=== PATIENT | male | born 1985 | race American Indian/Alaskan Native ===

== ENCOUNTER 2016-09-01 21:35 | Emergency (ER) | payer SELFPAY ==
[2016-09-01 21:49] VITALS: BP 136/96
[2016-09-01 21:58] LABS: Basophils % (Auto) 0.7 % (0.0-1.8); Eosinophils % (Auto) 1.7 % (0.0-4.3); Hematocrit 45.3 % (35.5-45.6); Hemoglobin 15.8 gm/dl (11.8-15.2); Mean Corpuscular HGB Conc 35 % (32-34); Mean Corpuscular Hemoglobin 31 pg (28-32); Mean Corpuscular Volume 88 fl (84-94); Platelet Count 187 K/mm3 (140-440); Red Blood Count 5.17 M/mm3 (3.65-5.03); Red Cell Distribution Width 12.6 % (13.2-15.2); White Blood Count 5.6 K/mm3 (4.5-11.0)
[2016-09-01 22:19] LABS: Anion Gap 18 mmol/L; Blood Urea Nitrogen 10 mg/dL (9-20); Calcium 9.8 mg/dL (8.4-10.2); Carbon Dioxide 27 mmol/L (22-30); Chloride 95.8 mmol/L (98-107); Glucose 381 mg/dL (75-100); Sodium 137 mmol/L (137-145)
--- NOTE | 2016-09-02 01:33 | Emergency Department Report ---
ED General Adult HPI - General Chief complaint: Hyperglycemia Stated complaint: HIGH BLOOD SUGAR Time Seen by Provider: 09/02/16 01:18 Source: patient, RN notes reviewed Mode of arrival: Ambulatory Limitations: No Limitations - History of Present Illness Initial comments: This is a 30-year-old male. He is previously unknown to me. He recently moved here from [place]. He does not have a local primary care doctor. He reports a past medical history of type I juvenile diabetes. He presents to and has been dosing himself with the ER with hyperglycemia. He reports that his Humalog prescription was too expensive, so he therefore bought novolin 70/30 from a local pharmacy and has been dosing himself with this short acting insulin. Patient reports onset of polyuria yesterday, and found his fingerstick to be elevated. He reports giving himself 2 injections of the short acting insulin and then presented to the ER. He denies headache, neck pain, chest pain, abdominal pain, shortness of breath, fevers, chills, testicular pain. He reports that he's had episodes of DKA in the past, and that his symptoms today do not feel consistent with prior episodes of DKA. He does admit to dietary indiscretions. -: Gradual Severity scale (0 -10): 0 Consistency: now resolved Improves with: medication Worsens with: none Associated Symptoms: denies: confusion, chest pain, cough, diaphoresis, fever/ chills, headaches, loss of appetite, malaise, nausea/vomiting, rash, seizure, shortness of breath, syncope, weakness - Related Data Previous Rx's Medication Instructions Recorded Last Taken Type Insulin Lispro [Humalog Kwikpen See Protocol SQ BID #5 insuln.pen 09/02/16 Unknown Rx U-100] Allergies Allergy/AdvReac Type Severity Reaction Status Date / Time No Known Allergies Allergy Verified 09/01/16 21:41 ED Review of Systems ROS: Stated complaint: HIGH BLOOD SUGAR Other details as noted in HPI Constitutional: denies: fever Eyes: denies: vision change ENT: denies: epistaxis Respiratory: denies: cough Cardiovascular: denies: chest pain Gastrointestinal: denies: abdominal pain Genitourinary: denies: urgency, dysuria Musculoskeletal: denies: back pain Skin: denies: lesions Neurological: denies: headache, weakness ED Past Medical Hx - Past Medical History Previous Medical History?: Yes Hx Diabetes: Yes (IDDM) - Surgical History Past Surgical History?: No - Social History Smoking Status: Never Smoker Substance Use Type: None - Medications Home Medications: Home Medications Medication Instructions Recorded Confirmed Last Taken Type Insulin Lispro [Humalog Kwikpen See Protocol SQ BID #5 insuln.pen 09/02/16 Unknown Rx U-100] ED Physical Exam - General Limitations: No Limitations General appearance: alert, in no apparent distress - Head Head exam: Present: atraumatic, normocephalic - Eye Eye exam: Present: normal appearance, EOMI. Absent: nystagmus - ENT ENT exam: Present: normal exam, normal orophraynx, mucous membranes moist, normal external ear exam - Neck Neck exam: Present: normal inspection, full ROM. Absent: tenderness, meningismus - Respiratory Respiratory exam: Present: normal lung sounds bilaterally. Absent: respiratory distress, wheezes, rales, rhonchi, stridor, chest wall tenderness - Cardiovascular Cardiovascular Exam: Present: regular rate, normal rhythm, normal heart sounds. Absent: bradycardia, tachycardia, irregular rhythm, systolic murmur, diastolic murmur, rubs, gallop - GI/Abdominal GI/Abdominal exam: Present: soft, normal bowel sounds. Absent: distended, tenderness, guarding, rebound, rigid, pulsatile mass - Rectal Rectal exam: Present: deferred - Extremities Exam Extremities exam: Present: normal inspection, full ROM, normal capillary refill. Absent: calf tenderness - Back Exam Back exam: Present: normal inspection, full ROM. Absent: CVA tenderness (L), muscle spasm, paraspinal tenderness, vertebral tenderness - Neurological Exam Neurological exam: Present: alert, oriented X3, normal gait, other (Extraocular movements intact. Tongue midline. No facial droop. Facial sensation intact to light touch in the V1, V2, V3 distribution bilaterally. 5 and 5 strength in 4 extremities.. Sensation is intact to light touch in 4 extremities.). Absent : motor sensory deficit - Psychiatric Psychiatric exam: Present: normal affect, normal mood - Skin Skin exam: Present: warm, dry, intact, normal color. Absent: rash ED Course Vital Signs 09/01/16 09/02/16 21:36 01:19 Temperature 98 F Pulse Rate 90 Respiratory 18 18 Rate Blood Pressure 136/96 [Right] O2 Sat by Pulse 98 99 Oximetry ED Medical Decision Making - Lab Data Result diagrams: 09/01/16 21:46 09/01/16 21:51 Vital Signs 09/01/16 09/02/16 21:36 01:19 Temperature 98 F Pulse Rate 90 Respiratory 18 18 Rate Blood Pressure 136/96 [Right] O2 Sat by Pulse 98 99 Oximetry Labs 09/01/16 09/01/16 09/01/16 21:42 21:46 21:50 WBC 5.6 RBC 5.17 H Hgb 15.8 H Hct 45.3 MCV 88 MCH 31 MCHC 35 H RDW 12.6 L Plt Count 187 Lymph % (Auto) 39.7 H [place] % (Auto) 8.3 H Eos % (Auto) 1.7 Baso % (Auto) 0.7 Lymph # 2.2 [place] # 0.5 Eos # 0.1 Baso # 0.0 Seg Neutrophils % 49.6 Seg Neutrophils # 2.8 VBG pH 7.336 Sodium Potassium Chloride Carbon Dioxide Anion Gap BUN Creatinine Estimated GFR BUN/Creatinine Ratio Glucose POC Glucose 365 H Calcium 09/01/16 09/02/16 21:51 00:27 WBC RBC Hgb Hct MCV MCH MCHC RDW Plt Count Lymph % (Auto) [place] % (Auto) Eos % (Auto) Baso % (Auto) Lymph # [place] # Eos # Baso # Seg Neutrophils % Seg Neutrophils # VBG pH Sodium 137 Potassium 4.0 Chloride 95.8 L Carbon Dioxide 27 Anion Gap 18 BUN 10 Creatinine 1.0 Estimated GFR > 60 BUN/Creatinine Ratio 10.00 Glucose 381 H POC Glucose 224 H Calcium 9.8 - Medical Decision Making Differential diagnosis: Hyperglycemia, diabetic ketoacidosis, medication noncompliance, hyperosmolar state Assessment and plan: 30-year-old male with resolving hyperglycemia. Laboratory studies not consistent with diabetic ketoacidosis or hyperosmolar state. He admits to dietary indiscretions. He reports he is able to get a Humalog prescription filled. I have counseled the patient to discontinue the short acting insulin, and to follow up with the primary care doctor. He is afebrile, with reassuring vital signs, denies testicular pain, denies hematuria and dysuria. Infectious etiology very unlikely given his symptomatology. Patient will be discharged at this time. Return precautions are reviewed. I will refill his Humalog prescription. Critical care attestation.: If time is entered above; I have spent that time in minutes in the direct care of this critically ill patient, excluding procedure time. ED Disposition Clinical Impression: Hyperglycemia Disposition: DC-01 TO HOME OR SELFCARE Is pt being admited?: No Does the pt Need Aspirin: No Condition: Stable Instructions: Diabetic Hyperglycemia (ED) Additional Instructions: Take insulin as directed on sliding scale. Make certain to adhere to a diabetic appropriate diet. Follow-up with the primary care doctor within the next month. Return to the ER right away with fevers, chills, chest pain, shortness of breath, intractable nausea or vomiting, confusion, inability to tolerate liquid feeds. Prescriptions: Insulin Lispro [Humalog Kwikpen U-100] See Protocol SQ BID #5 insuln.pen Referrals: PRIMARY CAREMD [Primary Care Provider] - 3-5 Days SUN ABRAMS MD [Staff Physician] - 3-5 Days PIERRE GRIMES MD [Staff Physician] - 3-5 Days [facility] [Provider Group] - 3-5 Days Forms: Work/School Release Form(ED)
== END 2016-09-02 01:41 | disposition home or self-care (01) ==
LOC: ED 21:35
DX: E11.65 Type 2 diabetes mellitus with hyperglycemia (principal); Z79.4 Long term (current) use of insulin
CPT/HCPCS: 36415; 80048; 82805; 82962; 85025

== ENCOUNTER 2016-10-21 15:55 | Inpatient (IN) | payer BC, OTHER ==
[2016-10-21 16:21] LABS: Basophils % (Auto) 1.1 % (0.0-1.8); Eosinophils % (Auto) 0.2 % (0.0-4.3); Hematocrit 46.1 % (35.5-45.6); Hemoglobin 15.1 gm/dl (11.8-15.2); Mean Corpuscular HGB Conc 33 % (32-34); Mean Corpuscular Hemoglobin 29 pg (28-32); Mean Corpuscular Volume 90 fl (84-94); Platelet Count 209 K/mm3 (140-440); Red Blood Count 5.12 M/mm3 (3.65-5.03); Red Cell Distribution Width 12.1 % (13.2-15.2); White Blood Count 11.4 K/mm3 (4.5-11.0)
[2016-10-21 16:39] LABS: Anion Gap 36 mmol/L; BUN/Creatinine Ratio 14.61; Blood Urea Nitrogen 19 mg/dL (9-20); Calcium 9.8 mg/dL (8.4-10.2); Carbon Dioxide 11 mmol/L (22-30); Chloride 88.8 mmol/L (98-107); Glucose 467 mg/dL (75-100); Potassium 4.7 mmol/L (3.6-5.0); Sodium 131 mmol/L (137-145)
[2016-10-21] MEDS ORDERED: D50W (25GM) Syringe IV PRN ×2 (16:59→18:15)
[2016-10-21] MEDS ORDERED: NACL 0.9% 1000 ML 1,000 ML IV ONE ×2 (17:08→20:26)
[2016-10-21] MEDS ORDERED: ZOFRAN IV ONE (17:08)
--- NOTE | 2016-10-21 17:15 | Emergency Department Report ---
HPI - General Chief Complaint: Hyperglycemia Time Seen by Provider: 10/21/16 16:59 - HPI HPI: Room 18 The patient is a 31-year-old male presented with a chief complaint nausea vomiting and fatigue. The patient states he ran out of his insulin 2 days ago and was scheduled to get it this afternoon. However the patient states this morning he began "feeling bad." The patient states his symptoms included nausea vomiting and fatigue. Location: [see above] Duration: One day Quality: Fatigue Severity: Moderate Modifying factors: [see above] Context: [see above] Mode of transportation: [not driving] ED Past Medical Hx - Past Medical History Previous Medical History?: Yes Hx Diabetes: Yes (diabetes type 1) - Surgical History Past Surgical History?: No - Family History Family history: no significant - Social History Smoking Status: Never Smoker Substance Use Type: None (denies illicit drug use), Alcohol - Medications Home Medications: Home Medications Medication Instructions Recorded Confirmed Last Taken Type Insulin Lispro [Humalog Kwikpen See Protocol SQ BID #5 insuln.pen 09/02/16 Unknown Rx U-100] ED Review of Systems ROS: Stated complaint: BLOOD SUGAR HIGH, VOMITING Other details as noted in HPI Comment: All other systems reviewed and negative Constitutional: malaise Eyes: denies: eye pain, eye discharge, vision change ENT: denies: ear pain, throat pain Respiratory: denies: cough, shortness of breath, wheezing Cardiovascular: denies: chest pain, palpitations Endocrine: increased thirst Gastrointestinal: nausea, vomiting Genitourinary: denies: urgency, dysuria Musculoskeletal: denies: back pain, joint swelling, arthralgia Skin: denies: rash, lesions Neurological: denies: headache, weakness, paresthesias Psychiatric: denies: anxiety, depression Hematological/Lymphatic: denies: easy bleeding, easy bruising Physical Exam - Physical Exam Vital Signs: Vital Signs 10/21/16 10/21/16 16:04 16:35 Temperature 98.3 F 98.1 F Pulse Rate 99 H 90 Respiratory 20 20 Rate Blood Pressure 121/80 Blood Pressure 124/68 [Right] O2 Sat by Pulse 97 96 Oximetry Physical Exam: GENERAL: The patient is well-developed well-nourished male lying on stretcher not appearing to be in acute distress. [] HEENT: Normocephalic. Atraumatic. Extraocular motions are intact. NECK: Supple. Trachea midline CHEST/LUNGS: Clear to auscultation. There is no respiratory distress noted. HEART/CARDIOVASCULAR: Regular. There is no tachycardia. There is no gallop rub or murmur. ABDOMEN: Abdomen is soft, nontender. Patient has normal bowel sounds. There is no abdominal distention. SKIN: There is no rash. There is no edema. There is no diaphoresis. and gait. MUSCULOSKELETAL: There is no evidence of acute injury. ED Course Vital Signs 10/21/16 10/21/16 16:04 16:35 Temperature 98.3 F 98.1 F Pulse Rate 99 H 90 Respiratory 20 20 Rate Blood Pressure 121/80 Blood Pressure 124/68 [Right] O2 Sat by Pulse 97 96 Oximetry ED Medical Decision Making - Lab Data Result diagrams: 10/21/16 16:09 10/21/16 16:09 Laboratory Tests 10/21/16 10/21/16 10/21/16 16:05 16:09 16:09 WBC 11.4 H RBC 5.12 H Hgb 15.1 Hct 46.1 H MCV 90 MCH 29 MCHC 33 RDW 12.1 L Plt Count 209 Lymph % (Auto) 20.0 [place] % (Auto) 4.3 Eos % (Auto) 0.2 Baso % (Auto) 1.1 Lymph # 2.3 [place] # 0.5 Eos # 0.0 Baso # 0.1 Seg Neutrophils % 74.4 H Seg Neutrophils # 8.5 H VBG pH Sodium 131 L Potassium 4.7 Chloride 88.8 L Carbon Dioxide 11 L Anion Gap 36 BUN 19 Creatinine 1.3 Estimated GFR > 60 BUN/Creatinine Ratio 14.61 Glucose 467 H POC Glucose 406 H Calcium 9.8 10/21/16 16:09 WBC RBC Hgb Hct MCV MCH MCHC RDW Plt Count Lymph % (Auto) [place] % (Auto) Eos % (Auto) Baso % (Auto) Lymph # [place] # Eos # Baso # Seg Neutrophils % Seg Neutrophils # VBG pH 7.161 L* Sodium Potassium Chloride Carbon Dioxide Anion Gap BUN Creatinine Estimated GFR BUN/Creatinine Ratio Glucose POC Glucose Calcium - Differential Diagnosis DKA, hyperosmolar nonketotic state Critical care attestation.: If time is entered above; I have spent that time in minutes in the direct care of this critically ill patient, excluding procedure time. ED Disposition Clinical Impression: DKA (diabetic ketoacidoses) Disposition: OP ADMIT IP TO THIS HOSP Is pt being admited?: Yes Does the pt Need Aspirin: Yes Condition: Serious Instructions: Diabetic Ketoacidosis (ED) Referrals: PRIMARY CARE, [Primary Care Provider] - 3-5 Days Time of Disposition: 17:15 (Hospitalist notified)
[2016-10-21] MEDS: NovoLIN R 100 UNITS in NACL 0.9% 99 ML IV SCH (18:06)
[2016-10-21 18:08] LABS: Anion Gap 39 mmol/L; Blood Urea Nitrogen 21 mg/dL (9-20); Calcium 9.9 mg/dL (8.4-10.2); Carbon Dioxide 11 mmol/L (22-30); Chloride 86.6 mmol/L (98-107); Sodium 130 mmol/L (137-145)
[2016-10-21 18:15] LABS: Glucose 515 mg/dL (75-100); Potassium 6.6 mmol/L (3.6-5.0)
[2016-10-21] MEDS ORDERED: MILK OF MAGNESIA PO PRN (18:15)
[2016-10-21] MEDS ORDERED: ALUM-MAG HYDROX-SIMETH 200-200-20MG/5ML PO PRN (18:15)
[2016-10-21] MEDS ORDERED: DULCOLAX PR PRN (18:15)
[2016-10-21] MEDS ORDERED: PROVENTIL IH PRN (18:15)
--- NOTE | 2016-10-21 18:20 | History and Physical Report ---
History of Present Illness Chief complaint: I feel sick History of present illness: 31 YO Male with DM presents to ED for evaluation. Pt states that he has experienced nausea, vomiting, fatigue for the past 2 days. Pt states that he ran out of insulin 2 days ago. Pt denies fever, chills, CP, Palpitations, productive cough, skin rashes, or recent ill contacts. Pt seen and evaluated in ED and found to have DKA. Pt admitted to ICU. Past History Past Medical History: diabetes Past Surgical History: No surgical history, Other (reviewed) Social history: single. denies: smoking, alcohol abuse, prescription drug abuse Family history: diabetes, hypertension Medications and Allergies Allergies Allergy/AdvReac Type Severity Reaction Status Date / Time No Known Allergies Allergy Verified 09/01/16 21:41 Home Medications Medication Instructions Recorded Confirmed Last Taken Type Insulin Lispro [Humalog Kwikpen See Protocol SQ BID #5 insuln.pen 09/02/1610/21 Unknown Rx U-100] Active Meds: Active Medications Al Hydrox/Mg Hydrox/Simethicone (Alum-Mag Hydrox-Simeth [id number]/5ml) 30 ml PO Q4H PRN PRN Reason: Indigestion Albuterol (Proventil) 2.5 mg IH Q3HRT PRN PRN Reason: Shortness Of Breath Bisacodyl (Dulcolax) 10 mg PA QDAY PRN PRN Reason: constipation unrelieved by MOM Dextrose (D50w (25gm) Syringe) 0 ml IV ONCE PRN PRN Reason: Hypoglycemia Dextrose (D50w (25gm) Syringe) 0 ml IV PRN PRN PRN Reason: Hypoglycemia Insulin Human Regular 100 (units/ Sodium Chloride) 100 mls @ 8 mls/hr IV TITR ANN MARIE; 8 UNITS/HR PRN Reason: Protocol Last Admin: 10/21/16 18:06 Dose: 8 units/hr, 8 mls/hr Sodium Chloride (Nacl 0.45%) 2,000 mls @ 1,000 mls/hr IV DIRECT ANN MARIE Insulin Human Regular 100 (units/ Sodium Chloride) 100 mls @ 1 mls/hr IV TITR ANN MARIE; 1 UNITS/HR PRN Reason: Protocol Magnesium Hydroxide (Milk Of Magnesia) 30 ml PO Q4H PRN PRN Reason: Constipation Review of Systems Constitutional: fatigue, weakness, no fever, no chills, no sweats Ears, nose, mouth and throat: no ear pain, no tinnitis, no nose pain, no nasal discharge Cardiovascular: no chest pain, no palpitations, no edema, no syncope, no dyspnea on exertion Respiratory: no cough, no excessive sputum, no shortness of breath, no wheezing , no sleep apnea Gastrointestinal: nausea, vomiting, no constipation, no hematemesis, no melena, no loss of appetite Genitourinary Male: no hematuria, no discharge, no urinary hesitancy, no incontinence Rectal: no pain, no bleeding, no itching Musculoskeletal: no neck stiffness, no shooting arm pain, no low back pain, no leg numbness/tingling Integumentary: no rash, no redness, no wounds, no boils Neurological: no transient paralysis, no weakness, no numbness, no syncope Psychiatric: no memory loss, no sleep disturbances, no hypersomnia, no change in libido, no disorientation Endocrine: polydipsia, polyuria, no cold intolerance, no polyphagia Hematologic/Lymphatic: no easy bruising, no lymphadenopathy, no thrombophilia Allergic/Immunologic: no urticaria, no wheezing Exam - Constitutional Vitals: Temp Pulse Resp BP Pulse Ox 98.1 F 90 20 124/68 96 10/21/16 16:35 10/21/16 16:35 10/21/16 16:35 10/21/16 16:35 10/21/16 16:35 General appearance: Present: mild distress - EENT Eyes: Present: PERRL ENT: hearing intact, clear oral mucosa - Neck Neck: Present: supple, normal ROM - Respiratory Respiratory effort: normal Respiratory: bilateral: CTA - Cardiovascular Heart Sounds: Present: S1 & S2. Absent: rub, click - Extremities Extremities: pulses symmetrical, No edema Peripheral Pulses: within normal limits - Abdominal General gastrointestinal: Present: soft, non-tender, non-distended, normal bowel sounds Male genitourinary: Present: normal - Integumentary Integumentary: Present: clear, dry, clammy, decreased turgor - Musculoskeletal Musculoskeletal: gait normal, strength equal bilaterally - Psychiatric Psychiatric: appropriate mood/affect, intact judgment & insight Results - Labs CBC & Chem 7: 10/21/16 16:09 10/22/16 04:09 Labs: Abnormal lab results 10/21/16 10/21/16 10/21/16 Range/Units 16:05 16:09 16:09 WBC 11.4 H (4.5-11.0) K/mm3 RBC 5.12 H (3.65-5.03) M/mm3 Hct 46.1 H (35.5-45.6) % RDW 12.1 L (13.2-15.2) % Seg Neutrophils % 74.4 H (40.0-70.0) % Seg Neutrophils # 8.5 H (1.8-7.7) K/mm3 VBG pH (7.320-7.420) Sodium 131 L (137-145) mmol/L Potassium (3.6-5.0) mmol/L Chloride 88.8 L (98-107) mmol/L Carbon Dioxide 11 L (22-30) mmol/L BUN (9-20) mg/dL Glucose 467 H (75-100) mg/dL POC Glucose 406 H (70-105) Phosphorus (2.5-4.5) mg/dL 10/21/16 10/21/16 10/21/16 Range/Units 16:09 17:31 18:04 WBC (4.5-11.0) K/mm3 RBC (3.65-5.03) M/mm3 Hct (35.5-45.6) % RDW (13.2-15.2) % Seg Neutrophils % (40.0-70.0) % Seg Neutrophils # (1.8-7.7) K/mm3 VBG pH 7.161 L* (7.320-7.420) Sodium 130 L (137-145) mmol/L Potassium 6.6 H* D (3.6-5.0) mmol/L Chloride 86.6 L (98-107) mmol/L Carbon Dioxide 11 L (22-30) mmol/L BUN 21 H (9-20) mg/dL Glucose 515 H* (75-100) mg/dL POC Glucose 464 H (70-105) Phosphorus 6.90 H (2.5-4.5) mg/dL Assessment and Plan - Patient Problems (1) DKA (diabetic ketoacidoses) Current Visit: Yes Status: Acute Qualifiers: Diabetes mellitus type: D Diabetes mellitus complication detail: D Plan to address problem: Admit to ICU, DKA protocol, serial bmp, IVF resuscitation, monitor uop q shift, insulin drip protocol The high probability of a clinically significant, sudden or life threatening deterioration of the [Endocrine, renal, pulmonary] system(s) required my full and direct attention, intervention and personal management. The aggregate critical care time was [65] minutes. This time is in addition to time spent performing reported procedures but includes the following: [x] Data Review and interpretation [x] Patient assessment and monitoring of vital signs [x] Documentation [x] Medication orders and management (2) Metabolic acidosis Current Visit: Yes Status: Acute Plan to address problem: IVF resuscitation, treat dka, monitor anion gap, (3) Hyponatremia syndrome Current Visit: Yes Status: Acute Plan to address problem: IVF resuscitation, repeat bmp (4) DVT prophylaxis Current Visit: Yes Status: Acute
[2016-10-21 18:55] LABS: Anion Gap 39 mmol/L; Blood Urea Nitrogen 21 mg/dL (9-20); Calcium 9.6 mg/dL (8.4-10.2); Carbon Dioxide 11 mmol/L (22-30); Chloride 86.1 mmol/L (98-107); Sodium 130 mmol/L (137-145)
[2016-10-21 18:59] LABS: Glucose 517 mg/dL (75-100); Potassium 6.3 mmol/L (3.6-5.0)
[2016-10-21] MEDS ORDERED: NovoLIN R 100 UNITS in NACL 0.9% 99 ML IV SCH (19:00)
[2016-10-21] MEDS ORDERED: NACL 0.45% 2,000 ML IV SCH (19:00)
[2016-10-21 19:57] LABS: Bilirubin,Urine NEG (Negative); Blood,Urine NEG (Negative); Ketones,Urine 80 mg/dL (Negative); Leukocyte Esterase,Urine NEG (Negative); Mucus,Urine FEW /HPF; Nitrite,Urine NEG (Negative); Protein,Urine <15 mg/dL mg/dL (Negative); Urobilinogen,Urine < 2.0 mg/dL (<2.0); WBC,Urine < 1.0 /HPF (0.0-6.0)
[2016-10-21 21:04] LABS: Anion Gap 34 mmol/L; Blood Urea Nitrogen 21 mg/dL (9-20); Calcium 8.9 mg/dL (8.4-10.2); Carbon Dioxide 12 mmol/L (22-30); Chloride 94.1 mmol/L (98-107); Glucose 374 mg/dL (75-100); Potassium 5.1 mmol/L (3.6-5.0); Sodium 135 mmol/L (137-145)
[2016-10-21 22:03] LABS: Anion Gap 32 mmol/L; BUN/Creatinine Ratio 14.61; Blood Urea Nitrogen 19 mg/dL (9-20); Carbon Dioxide 12 mmol/L (22-30); Glucose 313 mg/dL (75-100); Sodium 135 mmol/L (137-145)
[2016-10-21 23:42] LABS: Anion Gap 30 mmol/L; Blood Urea Nitrogen 18 mg/dL (9-20); Calcium 9.1 mg/dL (8.4-10.2); Carbon Dioxide 12 mmol/L (22-30); Chloride 98.1 mmol/L (98-107); Glucose 248 mg/dL (75-100); Potassium 4.9 mmol/L (3.6-5.0); Sodium 135 mmol/L (137-145)
[2016-10-21] MEDS: D5/0.45NS 1,000 ML IV SCH (23:43)
[2016-10-22 01:37] LABS: Anion Gap 24 mmol/L; BUN/Creatinine Ratio 11.53; Blood Urea Nitrogen 15 mg/dL (9-20); Carbon Dioxide 16 mmol/L (22-30); Chloride 100.8 mmol/L (98-107); Glucose 216 mg/dL (75-100); Potassium 5.1 mmol/L (3.6-5.0); Sodium 136 mmol/L (137-145)
[2016-10-22 04:47] LABS: Anion Gap 19 mmol/L; Blood Urea Nitrogen 15 mg/dL (9-20); Carbon Dioxide 21 mmol/L (22-30); Chloride 101.4 mmol/L (98-107); Glucose 164 mg/dL (75-100); Potassium 4.8 mmol/L (3.6-5.0); Sodium 137 mmol/L (137-145)
[2016-10-22] MEDS: NovoLIN R 100 UNITS in NACL 0.9% 99 ML IV SCH (06:34)
[2016-10-22] MEDS: D5/0.45NS 1,000 ML IV SCH (06:35)
[2016-10-22] MEDS ORDERED: D50W (25GM) Syringe IV PRN (09:11)
[2016-10-22 09:56] LABS: Anion Gap 19 mmol/L; Blood Urea Nitrogen 12 mg/dL (9-20); Calcium 8.5 mg/dL (8.4-10.2); Carbon Dioxide 20 mmol/L (22-30); Chloride 97.9 mmol/L (98-107); Glucose 357 mg/dL (75-100); Sodium 133 mmol/L (137-145)
--- NOTE | 2016-10-22 10:29 | Admit Criteria Form ---
Admission Criteria Documentation: DIABETES Clinical Indications for Admission to Inpatient Care ([facility]/check or initial the applicable condition/criteria) Admission is indicated by 1 or more of the following(1)(2)(3)(4)(5): [X ]a) Diabetic ketoacidosis as indicated by ALL the following(9): [X ]i) Hyperglycemia (eg, plasma glucose greater than 200 mg /dL (11.1 mmol/L)) [X ]ii) Acidosis (eg, arterial or venous pH less than 7.30, serum bicarbonate level less than 15 mEq/L (mmol/L)) [A] [ ]iii) Moderate ketonuria or ketonemia [ ]b) Hyperglycemic hyperosmolar state as indicated by ALL of the following: [ ]i) Plasma glucose greater than 600 mg/dL (33.3 mmol/L) [ ]ii) Serum osmolality greater than 320 mOsm/kg (mmol/kg) [ ]iii) Neurologic dysfunction (eg, stupor, coma, hemiparesis , seizure)(14) [ ]c) Hyperglycemia requiring inpatient care as indicated by 1 or more of the following: [ ]i) Altered mental status that is severe or persistent [ ]ii) Dehydration that is severe or persistent [ ]iii) Vomiting that is severe or persistent [ ]iv) Unexplained fever or severe infection [ ]v) Significant electrolyte abnormality(e.g., hypokalemia, hyperkalemia, hypernatremia) not responsive to outpatient and observation care treatment Extended stay beyond goal length of stay may be needed for(3)(20) [ ]a) Treatment of precipitating causes(2) [ ]b) Development of significant hypoglycemia(22)(23) [ ]c) Complications of treatment(24) [ ]d) Complications of decompensated diabetes (e.g., acute gastric dilatation, persistent metabolic or neurologic derangement) (25) [ ]e) Active Comorbidities [ ]f) Older patients The original [employer] content created by [employer] has been revised. The portions of the content which have been revised are identified through the use of italic text or in bold,and [facility] [employer] has neither reviewed nor approved the modified material. All other unmodified content is copyright [employer]. Please see references footnoted in the original [employer] edition 2017 Admission Criteria Met: Yes
--- NOTE | 2016-10-22 10:53 | Consultation ---
History of Present Illness - Reason for Consult Consult date: 10/22/16 DKA Requesting physician: RADHA TORRES - History of Present Illness 31 y/o male admitted with DKA after running out of baseline insulin. This am, Anion Gap has closed. Long acting insulin has been ordered and patient has been ordered a diet. Remainder of the review is negative. Past History Past Medical History: diabetes Past Surgical History: No surgical history, Other (reviewed) Social history: single. denies: smoking, alcohol abuse, prescription drug abuse Family history: diabetes, hypertension Medications and Allergies Allergies Allergy/AdvReac Type Severity Reaction Status Date / Time No Known Allergies Allergy Verified 09/01/16 21:41 Home Medications Medication Instructions Recorded Confirmed Last Taken Type Insulin Lispro [Humalog Kwikpen See Protocol SQ BID #5 insuln.pen 09/02/1610/21 Unknown Rx U-100] Active Meds: Active Medications Al Hydrox/Mg Hydrox/Simethicone (Alum-Mag Hydrox-Simeth 644-668-25wt/5ml) 30 ml PO Q4H PRN PRN Reason: Indigestion Albuterol (Proventil) 2.5 mg IH Q3HRT PRN PRN Reason: Shortness Of Breath Bisacodyl (Dulcolax) [address] QDAY PRN PRN Reason: constipation unrelieved by MOM Dextrose (D50w (25gm) Syringe) 0 ml IV PRN PRN PRN Reason: Hypoglycemia Dextrose/Sodium Chloride (D5/0.45ns) 1,000 mls @ 125 mls/hr IV DIRECT ANN MARIE Last Admin: 10/22/16 06:35 Dose: 125 mls/hr Insulin Aspart (Novolog) 0 units SUB-Q ACHS ANN MARIE PRN Reason: Protocol Insulin Detemir (Levemir) 10 units SUB-Q QAMDIAB ANN MARIE Magnesium Hydroxide (Milk Of Magnesia) 30 ml PO Q4H PRN PRN Reason: Constipation Review of Systems All systems: negative Exam - Constitutional Vitals: Temp Pulse Resp BP Pulse Ox 97.4 F L 81 12 107/67 100 10/22/16 08:00 10/22/16 08:50 10/22/16 08:50 10/22/16 08:50 10/22/16 08:50 General appearance: Present: no acute distress - EENT Eyes: Present: PERRL, EOM intact ENT: hearing intact, clear oral mucosa - Neck Neck: Present: supple, normal ROM - Respiratory Respiratory effort: normal Respiratory: bilateral: CTA - Cardiovascular Rhythm: regular Heart Sounds: Present: S1 & S2 - Extremities Extremities: no ischemia - Abdominal General gastrointestinal: Present: soft Results - Labs CBC & Chem 7: 10/21/16 16:09 10/22/16 09:06 Labs: Abnormal lab results 10/21/16 10/21/16 10/21/16 Range/Units 18:25 19:05 20:13 Sodium 130 L 135 L (137-145) mmol/L Potassium 6.3 H* 5.1 H (3.6-5.0) mmol/L Chloride 86.1 L 94.1 L (98-107) mmol/L Carbon Dioxide 11 L 12 L (22-30) mmol/L BUN 21 H 21 H (9-20) mg/dL Glucose 517 H* 374 H (75-100) mg/dL POC Glucose 454 H (70-105) Phosphorus 6.70 H (2.5-4.5) mg/dL 10/21/16 10/21/16 10/21/16 Range/Units 20:27 21:28 21:39 Sodium 135 L (137-145) mmol/L Potassium (3.6-5.0) mmol/L Chloride 96.0 L (98-107) mmol/L Carbon Dioxide 12 L (22-30) mmol/L BUN (9-20) mg/dL Glucose 313 H (75-100) mg/dL POC Glucose 375 H 357 H (70-105) Phosphorus (2.5-4.5) mg/dL 10/21/16 10/21/16 10/22/16 Range/Units 23:05 23:29 00:30 Sodium 135 L (137-145) mmol/L Potassium (3.6-5.0) mmol/L Chloride (98-107) mmol/L Carbon Dioxide 12 L (22-30) mmol/L BUN (9-20) mg/dL Glucose 248 H (75-100) mg/dL POC Glucose 217 H 199 H (70-105) Phosphorus (2.5-4.5) mg/dL 10/22/16 10/22/16 10/22/16 Range/Units 01:08 01:28 02:44 Sodium 136 L (137-145) mmol/L Potassium 5.1 H (3.6-5.0) mmol/L Chloride (98-107) mmol/L Carbon Dioxide 16 L (22-30) mmol/L BUN (9-20) mg/dL Glucose 216 H (75-100) mg/dL POC Glucose 205 H 189 H (70-105) Phosphorus (2.5-4.5) mg/dL 10/22/16 10/22/16 10/22/16 Range/Units 03:43 04:09 04:54 Sodium (137-145) mmol/L Potassium (3.6-5.0) mmol/L Chloride (98-107) mmol/L Carbon Dioxide 21 L (22-30) mmol/L BUN (9-20) mg/dL Glucose 164 H (75-100) mg/dL POC Glucose 186 H 156 H (70-105) Phosphorus (2.5-4.5) mg/dL 10/22/16 10/22/16 10/22/16 Range/Units 05:34 06:33 09:06 Sodium 133 L (137-145) mmol/L Potassium (3.6-5.0) mmol/L Chloride 97.9 L (98-107) mmol/L Carbon Dioxide 20 L (22-30) mmol/L BUN (9-20) mg/dL Glucose 357 H (75-100) mg/dL POC Glucose 130 H 109 H (70-105) Phosphorus (2.5-4.5) mg/dL Assessment and Plan 31 y/o male with DKA. 1. Agree with stopping Insulin drip and transitioning to long acting insulin 2. CC diet 3. Should be stable for transfer out of ICU
[2016-10-22] MEDS ORDERED: LEVEMIR SUB-Q SCH (11:00)
[2016-10-22 12:08] LABS: Anion Gap 21 mmol/L; Blood Urea Nitrogen 12 mg/dL (9-20); Calcium 8.9 mg/dL (8.4-10.2); Carbon Dioxide 20 mmol/L (22-30); Chloride 97.8 mmol/L (98-107); Glucose 245 mg/dL (75-100); Potassium 4.6 mmol/L (3.6-5.0); Sodium 134 mmol/L (137-145)
[2016-10-22] MEDS: NOVOLOG SUB-Q SCH ×3 (15:39→21:12)
[2016-10-22 16:37] LABS: ISTAT Base Excess -10; ISTAT DEVICE 0; ISTAT HCO3 16.8; ISTAT PH 7.301 (7.35-7.45); ISTAT PO2 91 (80-105); ISTAT SO2 96; ISTAT TCO2 18
[2016-10-22] MEDS ORDERED: NACL 0.9% 1000 ML 1,000 ML IV ONE (16:39)
--- NOTE | 2016-10-22 16:50 | Progress Note ---
Assessment and Plan Assessment and plan: DKA Diabetes mellitus his hyperglycemia Medication non-compliance Metabolic acidosis - Patient treated according to DKA protocol - Anion gap closed - Acidosis is resolved - Patient started on sliding scale and long-acting insulin - Give him bolus of normal saline and continue with 125 mL per hour normal saline DVT prophylaxis - Lovenox Disposition - Transferred to the floor. History Interval history: Patient was seen and evaluated this morning, patient was alert and oriented. He said he is feeling better. Hospitalist Physical - Physical exam Narrative exam: Not in cardiopulmonary distress. The patient appeared well nourished and normally developed. Vital signs as documented. Head exam is unremarkable. No scleral icterus . Neck is without jugular venous distension, thyromegaly, or carotid bruits. Lungs are clear to auscultation. Cardiac exam reveals regular rate and Rhythm. First and second heart sounds normal. No murmurs, rubs or gallops. Abdominal exam reveals normal bowel sounds, no masses, no organomegaly and no aortic enlargement. Extremities are nonedematous and both femoral and pedal pulses are normal. ENVIRONMENTAL CONFLICT MANAGER: Alert and oriented 3. No focal weakness. - Constitutional Vitals: Temp Pulse Resp BP Pulse Ox 97.8 F 85 15 119/73 98 10/22/16 16:00 10/22/16 16:00 10/22/16 16:00 10/22/16 16:00 10/22/16 16:00 General appearance: Present: no acute distress Results - Labs CBC & Chem 7: 10/21/16 16:09 10/22/16 11:11 Labs: Laboratory Last Values WBC 11.4 K/mm3 (4.5-11.0) H 10/21/16 16:09 RBC 5.12 M/mm3 (3.65-5.03) H 10/21/16 16:09 Hgb 15.1 gm/dl (11.8-15.2) 10/21/16 16:09 Hct 46.1 % (35.5-45.6) H 10/21/16 16:09 MCV 90 fl (84-94) 10/21/16 16:09 MCH 29 pg (28-32) 10/21/16 16:09 MCHC 33 % (32-34) 10/21/16 16:09 RDW 12.1 % (13.2-15.2) L 10/21/16 16:09 Plt Count 209 K/mm3 (140-440) 10/21/16 16:09 Lymph % (Auto) 20.0 % (13.4-35.0) 10/21/16 16:09 [place] % (Auto) 4.3 % (0.0-7.3) 10/21/16 16:09 Eos % (Auto) 0.2 % (0.0-4.3) 10/21/16 16:09 Baso % (Auto) 1.1 % (0.0-1.8) 10/21/16 16:09 Lymph # 2.3 K/mm3 (1.2-5.4) 10/21/16 16:09 [place] # 0.5 K/mm3 (0.0-0.8) 10/21/16 16:09 Eos # 0.0 K/mm3 (0.0-0.4) 10/21/16 16:09 Baso # 0.1 K/mm3 (0.0-0.1) 10/21/16 16:09 Seg Neutrophils % 74.4 % (40.0-70.0) H 10/21/16 16:09 Seg Neutrophils # 8.5 K/mm3 (1.8-7.7) H 10/21/16 16:09 POC ABG pH 7.301 (7.35-7.45) L 10/22/16 16:33 POC ABG pCO2 34.0 (35-45) L 10/22/16 16:33 POC ABG pO2 91 (80-105) 10/22/16 16:33 POC ABG HCO3 16.8 10/22/16 16:33 POC ABG Total CO2 18 10/22/16 16:33 POC ABG O2 Sat 96 10/22/16 16:33 POC ABG Base Excess -10 10/22/16 16:33 VBG pH 7.161 (7.320-7.420) L* 10/21/16 16:09 FiO2 21 % 10/22/16 16:33 Sodium 134 mmol/L (137-145) L 10/22/16 11:11 Potassium 4.6 mmol/L (3.6-5.0) 10/22/16 11:11 Chloride 97.8 mmol/L (98-107) L 10/22/16 11:11 Carbon Dioxide 20 mmol/L (22-30) L 10/22/16 11:11 Anion Gap 21 mmol/L 10/22/16 11:11 BUN 12 mg/dL (9-20) 10/22/16 11:11 Creatinine 1.0 mg/dL (0.8-1.5) 10/22/16 11:11 Estimated GFR > 60 ml/min 10/22/16 11:11 BUN/Creatinine Ratio 12.00 % 10/22/16 11:11 Glucose 245 mg/dL (75-100) H 10/22/16 11:11 POC Glucose 109 (70-105) H 10/22/16 06:33 Calcium 8.9 mg/dL (8.4-10.2) 10/22/16 11:11 Phosphorus 6.70 mg/dL (2.5-4.5) H 10/21/16 18:25 Magnesium 2.20 mg/dL (1.7-2.3) 10/21/16 18:25 Urine Color Straw (Yellow) 10/21/16 19:38 Urine Turbidity Clear (Clear) 10/21/16 19:38 Urine pH 5.0 (5.0-7.0) 10/21/16 19:38 Ur Specific [place] 1.018 (1.003-1.030) 10/21/16 19:38 Urine Protein <15 mg/dl mg/dL (Negative) 10/21/16 19:38 Urine Glucose (UA) >=500 mg/dL (Negative) 10/21/16 19:38 Urine Ketones 80 mg/dL (Negative) 10/21/16 19:38 Urine Blood Neg (Negative) 10/21/16 19:38 Urine Nitrite Neg (Negative) 10/21/16 19:38 Urine Bilirubin Neg (Negative) 10/21/16 19:38 Urine Urobilinogen < 2.0 mg/dL (<2.0) 10/21/16 19:38 Ur Leukocyte Esterase Neg (Negative) 10/21/16 19:38 Urine WBC (Auto) < 1.0 /HPF (0.0-6.0) 10/21/16 19:38 Urine RBC (Auto) 5.0 /HPF (0.0-6.0) 10/21/16 19:38 Urine Mucus Few /HPF 10/21/16 19:38
[2016-10-22] MEDS ORDERED: NACL 0.9% 1000 ML 1,000 ML IV SCH (17:00)
[2016-10-22 18:11] LABS: Anion Gap 22 mmol/L; BUN/Creatinine Ratio 10.83; Blood Urea Nitrogen 13 mg/dL (9-20); Carbon Dioxide 20 mmol/L (22-30); Chloride 92.6 mmol/L (98-107); Glucose 401 mg/dL (75-100); Potassium 3.9 mmol/L (3.6-5.0); Sodium 131 mmol/L (137-145)
[2016-10-22] MEDS ORDERED: LOVENOX SUB-Q SCH (22:00)
[2016-10-22] MEDS ORDERED: LEVEMIR SUB-Q ONE (22:34)
[2016-10-23] MEDS ORDERED: NOVOLOG SUB-Q SCH (02:00)
[2016-10-23 04:59] LABS: Basophils % (Auto) 0.8 % (0.0-1.8); Eosinophils % (Auto) 1.8 % (0.0-4.3); Hematocrit 39.4 % (35.5-45.6); Hemoglobin 13.5 gm/dl (11.8-15.2); Mean Corpuscular HGB Conc 34 % (32-34); Mean Corpuscular Hemoglobin 30 pg (28-32); Mean Corpuscular Volume 86 fl (84-94); Platelet Count 165 K/mm3 (140-440); Red Blood Count 4.57 M/mm3 (3.65-5.03); Red Cell Distribution Width 12.8 % (13.2-15.2); White Blood Count 6.2 K/mm3 (4.5-11.0)
[2016-10-23 05:02] LABS: Anion Gap 18 mmol/L; Blood Urea Nitrogen 9 mg/dL (9-20); Calcium 8.6 mg/dL (8.4-10.2); Carbon Dioxide 21 mmol/L (22-30); Chloride 103.6 mmol/L (98-107); Glucose 175 mg/dL (75-100); Potassium 3.6 mmol/L (3.6-5.0); Sodium 139 mmol/L (137-145)
[2016-10-23] MEDS ORDERED: LEVEMIR SUB-Q SCH (08:00)
[2016-10-23 08:13] VITALS: BP 115/70
--- NOTE | 2016-10-23 11:18 | Discharge Summary ---
Providers - Providers Date of Admission: 10/21/16 18:15 Date of discharge: 10/23/16 Attending physician: RADHA BALLARD MD Primary care physician: HEMA BERMEO MD Hospitalization Condition: Serious Disposition: DC-01 TO HOME OR SELFCARE Time spent for discharge: 31 minutes - Discharge Diagnoses (1) Noncompliance with medication regimen Status: Acute (2) DKA (diabetic ketoacidoses) Status: Acute Qualifiers: Diabetes mellitus type: D Diabetes mellitus complication detail: D (3) DVT prophylaxis Status: Acute (4) Hyponatremia syndrome Status: Acute (5) Metabolic acidosis Status: Acute Core Measure Documentation - Palliative Care Palliative Care/ Comfort Measures: Not Applicable - Core Measures Any of the following diagnoses?: none Exam - Physical Exam Narrative exam: Not in cardiopulmonary distress. The patient appeared well nourished and normally developed. Vital signs as documented. Head exam is unremarkable. No scleral icterus . Neck is without jugular venous distension, thyromegaly, or carotid bruits. Lungs are clear to auscultation. Cardiac exam reveals regular rate and Rhythm. First and second heart sounds normal. No murmurs, rubs or gallops. Abdominal exam reveals normal bowel sounds, no masses, no organomegaly and no aortic enlargement. Extremities are nonedematous and both femoral and pedal pulses are normal. LICENSE INSPECTOR: Alert and oriented 3. No focal weakness. - Constitutional Vitals: Temp Pulse Resp BP Pulse Ox 97.9 F 77 18 115/70 97 10/23/16 08:11 10/23/16 08:11 10/23/16 08:11 10/23/16 08:11 10/23/16 08:11 Plan Activity: no restrictions Weight Bearing Status: Full Weight Bearing Diet: diabetic Follow up with: PRIMARY MD JEAN-CLAUDE [Primary Care Provider] - 3-5 Days Prescriptions: Insulin NPH/Regular [Novolin 70/30] 10 unit SQ BIDDIAB #2
== END 2016-10-23 13:15 | disposition home or self-care (01) | DRG 638 ==
LOC: ED 15:55 → CC1 18:15 → 3A 10-22 23:37
PROVIDERS: ADMIT Internal Medicine; ATTEND Internal Medicine
PROC: 4A033R1 Measurement of Arterial Saturation, Peripheral, Percutaneous Approach (ICD-10-PCS; principal; 2016-10-22)
DX: E13.10 Other specified diabetes mellitus with ketoacidosis without coma (principal); E87.1 Hypo-osmolality and hyponatremia; Z91.19 Patient's noncompliance with other medical treatment and regimen; Z83.3 Family history of diabetes mellitus; Z82.49 Family history of ischemic heart disease and other diseases of the circulatory system
CPT/HCPCS: 36415; 36600; 80048; 81001; 82803; 82805; 82962; 83036; 83735; 84100; 85025; 96361; 96374; J1650; J1815; J1818; J2405; J7030

== ENCOUNTER 2017-07-03 18:38 | Inpatient (IN) | payer SELFPAY ==
[2017-07-03 18:59] LABS: Basophils # (Auto) 0.1 K/mm3 (0.0-0.1); Eosinophils # (Auto) 0.1 K/mm3 (0.0-0.4); Eosinophils % (Auto) 0.9 % (0.0-4.3); Hematocrit 48.8 % (35.5-45.6); Hemoglobin 16.8 gm/dl (11.8-15.2); Lymphocytes # (Auto) 3.4 K/mm3 (1.2-5.4); Lymphocytes % (Auto) 31.4 % (13.4-35.0); Mean Corpuscular HGB Conc 34 % (32-34); Mean Corpuscular Hemoglobin 29 pg (28-32); Mean Corpuscular Volume 86 fl (84-94); Monocytes # (Auto) 1.1 K/mm3 (0.0-0.8); Monocytes % (Auto) 10.3 % (0.0-7.3); Platelet Count 235 K/mm3 (140-440); Red Cell Distribution Width 12.7 % (13.2-15.2)
[2017-07-03 19:19] LABS: BUN/Creatinine Ratio 14; Blood Urea Nitrogen 20 mg/dL (9-20); Calcium 10.1 mg/dL (8.4-10.2); Hemolysis Index 5
[2017-07-03] MEDS ORDERED: NACL 0.9% 1000 ML 1,000 ML IV ONE ×2 (21:08→22:04)
--- NOTE | 2017-07-03 21:22 | Emergency Department Report ---
ED General Adult HPI - General Chief complaint: Hyperglycemia Stated complaint: GOING INTO DKA Time Seen by Provider: 07/03/17 21:06 Source: patient Mode of arrival: Ambulatory Limitations: No Limitations - History of Present Illness Initial comments: History of type 1 diabetes since been out of his insulin previous history of noncompliance here for evaluation of thinks his sugar is high and may be going into DKA. No fever no chest pain no polyuria and no polydipsia no headache no stiff neck does admit to frequent EtOH last drink was 12-24 hours, -: Gradual, days(s), unknown Radiation: non-radiation Severity scale (0 -10): 0 Consistency: intermittent Associated Symptoms: denies other symptoms, loss of appetite, malaise, nausea/ vomiting. denies: confusion, chest pain, cough, diaphoresis, fever/chills, headaches, rash, seizure, shortness of breath, syncope, weakness - Related Data Previous Rx's Medication Instructions Recorded Last Taken Type Insulin Lispro [Humalog 100 See Protocol SQ BID #5 insuln.pen 09/02/16 Unknown Rx UNITS/ML Kwikpen] Insulin NPH/Regular [Novolin 70/30] 10 unit SQ BIDDIAB #2 10/23/16 Unknown Rx Allergies Allergy/AdvReac Type Severity Reaction Status Date / Time No Known Allergies Allergy Verified 09/01/16 21:41 ED Review of Systems ROS: Stated complaint: GOING INTO DKA Other details as noted in HPI Comment: All other systems reviewed and negative Constitutional: diaphoresis, malaise. denies: fever Eyes: denies: eye discharge, vision change ENT: denies: dental pain, hearing loss, epistaxis Respiratory: denies: cough, orthopnea, shortness of breath, SOB with exertion, SOB at rest, stridor Cardiovascular: denies: chest pain, palpitations, dyspnea on exertion, orthopnea , edema, syncope Endocrine: denies: excessive sweating Gastrointestinal: abdominal pain, nausea, vomiting. denies: diarrhea, constipation, hematemesis, melena, hematochezia Musculoskeletal: denies: joint swelling, arthralgia Skin: denies: pruritus Neurological: denies: headache, weakness, numbness, paresthesias, confusion, abnormal gait, vertigo Psychiatric: denies: depression, auditory hallucinations, visual hallucinations , suicidal thoughts ED Past Medical Hx - Past Medical History Hx Congestive Heart Failure: No Hx Diabetes: Yes (TYPE I) Hx Asthma: No Hx COPD: No - Surgical History Past Surgical History?: No - Social History Smoking Status: Never Smoker Substance Use Type: Alcohol - Medications Home Medications: Home Medications Medication Instructions Recorded Confirmed Last Taken Type Insulin Lispro [Humalog 100 See Protocol SQ BID #5 insuln.pen 09/02/16 10/21/16 Unknown Rx UNITS/ML Kwikpen] Insulin NPH/Regular [Novolin 70/30] 10 unit SQ BIDDIAB #2 10/23/16 Unknown Rx ED Physical Exam - General Limitations: No Limitations General appearance: alert, anxious - Head Head exam: Present: atraumatic, normocephalic - Eye Eye exam: Present: PERRL, EOMI - ENT ENT exam: Present: normal exam, normal orophraynx, mucous membranes dry - Neck Neck exam: Present: normal inspection. Absent: tenderness, meningismus - Respiratory Respiratory exam: Present: normal lung sounds bilaterally. Absent: respiratory distress, wheezes, rales, rhonchi, stridor, chest wall tenderness, accessory muscle use, decreased breath sounds, prolonged expiratory - Cardiovascular Cardiovascular Exam: Present: regular rate, normal rhythm, normal heart sounds - GI/Abdominal GI/Abdominal exam: Present: soft. Absent: distended, tenderness, guarding, rebound, rigid, mass, pulsatile mass - Extremities Exam Extremities exam: Present: other (delayed cap refill). Absent: tenderness, calf tenderness - Back Exam Back exam: Present: normal inspection. Absent: CVA tenderness (L), muscle spasm , paraspinal tenderness, vertebral tenderness - Neurological Exam Neurological exam: Present: alert, oriented X3, CN II-XII intact. Absent: motor sensory deficit - Skin Skin exam: Absent: urticaria, vesicles, petechiae, pallor, abrasion, ecchymosis ED Course Vital Signs 07/03/17 07/03/17 18:40 21:14 Temperature 98.9 F 98.7 F Pulse Rate 137 H 91 H Respiratory 18 16 Rate Blood Pressure 145/89 Blood Pressure 121/84 [Right] O2 Sat by Pulse 96 97 Oximetry ED Medical Decision Making - Lab Data Result diagrams: 07/03/17 18:48 07/03/17 22:09 - Medical Decision Making Patient was given IV fluids. In pH 7.3 with anion gap of 20 with positive ketones however glucose is not elevated and she dropped to 50. Symptoms are likely related to alcohol with alcoholic ketoacidosis patient was given glucose containing fluids he is dehydrated with an anion gap. Case was discussed with hospitalist who will admit for further evaluation of anion gap acidosis and a diabetic with some intermittent nausea vomiting. He has no acute abdomen at this time bony admission for further evaluation of anion gap acidosis Critical care attestation.: If time is entered above; I have spent that time in minutes in the direct care of this critically ill patient, excluding procedure time. ED Disposition Clinical Impression: Metabolic acidosis, Alcoholic ketoacidosis Disposition: OP ADMIT IP TO THIS HOSP Is pt being admited?: Yes Condition: Stable Referrals: PRIMARY CARE, [Primary Care Provider] - 3-5 Days Time of Disposition: 23:20
[2017-07-03 22:48] LABS: BUN/Creatinine Ratio 16; Blood Urea Nitrogen 19 mg/dL (9-20); Calcium 9.6 mg/dL (8.4-10.2); Hemolysis Index 185
[2017-07-03] MEDS ORDERED: ZOFRAN IV ONE (23:16)
[2017-07-03] MEDS ORDERED: VITAMIN B-1 100 MG in NACL 0.9% 50 ML IV ONE (23:21)
[2017-07-03] MEDS ORDERED: D5NS 1,000 ML IV SCH (23:45)
--- NOTE | 2017-07-03 23:46 | XRay Report ---
FINAL REPORT PROCEDURE: XR CHEST 1V AP TECHNIQUE: Chest radiograph anteroposterior view. CPT 40553 HISTORY: diabetic ketosis aciodosis COMPARISON: No prior studies are available for comparison. FINDINGS: Heart: Normal. Mediastinum/Vessels: Normal. Lungs/Pleural space: Normal. Bony thorax: No acute osseous abnormality. Life support devices: None. IMPRESSION: No acute cardiopulmonary abnormality.
[2017-07-04] MEDS ORDERED: ZOFRAN IV PRN (00:48)
[2017-07-04] MEDS ORDERED: TYLENOL PO PRN (00:48)
[2017-07-04] MEDS: 1: FOLVITE 1 MG, INFUVITE 10 ML, VITAMIN B-1 100 MG in NACL 0.9% 1000 ML 988.8 ML 2: NA IV SCH ×2 (02:33→10:22)
[2017-07-04] MEDS: HEPARIN SUB-Q SCH ×3 (02:38→22:45)
[2017-07-04 07:21] LABS: BUN/Creatinine Ratio 15; Blood Urea Nitrogen 15 mg/dL (9-20); Calcium 8.5 mg/dL (8.4-10.2); Hemolysis Index 1
[2017-07-04 07:26] LABS: Bilirubin,Urine NEG (Negative); Blood,Urine NEG (Negative); Color,Urine Yellow (Yellow); Mucus,Urine FEW /HPF; RBC,Urine < 1.0 /HPF (0.0-6.0)
[2017-07-04 07:33] LABS: Amphetamine Screen,Urine PRESUMPTIVE NEGATIVE; Benzodiazepines Screen,Urine PRESUMPTIVE NEGATIVE; Cannabinoid Screen,Urine PRESUMPTIVE NEGATIVE; Cocaine Screen,Urine PRESUMPTIVE NEGATIVE; Methadone Screen,Urine PRESUMPTIVE NEGATIVE; Opiate Screen,Urine PRESUMPTIVE NEGATIVE
--- NOTE | 2017-07-04 12:38 | Progress Note ---
Assessment and Plan -Diabetes mellitus type 1 Comments sliding scale insulin Consistent lightheaded diet - Alcohol abuse DT precaution with CIWA priotocal using ativan Counseling on alcohol as a source. - Hyponatremia IV hydration with normal saline - Hypokalemia We'll supplement. Check magnesium level - Medication noncompliance Counseling and noncompliance. Patient has been out of his insulin for one month. - DVT prophylaxis with heparin GI with Pepcid Subjective Date of service: 07/04/17 Principal diagnosis: DKA, T1DM Interval history: Patient seen and examined. Denies any abdominal tenderness and no vomiting. Blood sugar with frequent alcohol ingestion. Reviewed laboratory and radiological data Objective - Exam Narrative Exam: Constitutional: Well-nourished well-developed. In no distress Head: Normocephalic atraumatic Eyes: Pupils are equal round and reactive to light Nose: No enlarged turbinates, no septal deviation. Mouth: Moist mucous membranes. Neck: Supple no thyromegaly. No bruit. No JVD Heart: Regular rate and rhythm, S1-S2 abnormal. No rubs murmurs or gallop Lungs: Clear to auscultation bilaterally no rales or rhonchi Abdomen: Soft, nontender. Bowel sound are present. Extremities: No edema no cyanosis and no clubbing. Neuro: Alert oriented Oriented x3. No focal sensory or motor deficit. Skin: No rashes no hyperemic spots Psychiatry: Euthymic. Calm. - Constitutional Vitals: Vital Signs - 12hr 07/04/17 07/04/17 07/04/17 00:45 01:00 01:15 Temperature Pulse Rate 87 87 88 Respiratory 17 19 17 Rate Blood Pressure 129/83 132/87 141/89 Blood Pressure [Right] O2 Sat by Pulse 99 100 100 Oximetry 07/04/17 07/04/17 07/04/17 01:30 02:09 03:47 Temperature 98.5 F Pulse Rate 97 H 78 Respiratory 16 24 17 Rate Blood Pressure 141/90 120/58 Blood Pressure [Right] O2 Sat by Pulse 100 98 100 Oximetry 07/04/17 08:22 Temperature 98.0 F Pulse Rate 92 H Respiratory 16 Rate Blood Pressure Blood Pressure 125/73 [Right] O2 Sat by Pulse Oximetry - Labs CBC & Chem 7: 07/03/17 18:48 07/04/17 06:02 Labs: Abnormal lab results 07/03/17 07/03/17 07/03/17 Range/Units 18:48 18:48 22:09 RBC 5.70 H (3.65-5.03) M/mm3 Hgb 16.8 H (11.8-15.2) gm/dl Hct 48.8 H (35.5-45.6) % RDW 12.7 L (13.2-15.2) % [place] % (Auto) 10.3 H (0.0-7.3) % [place] # 1.1 H (0.0-0.8) K/mm3 Sodium 135 L 135 L (137-145) mmol/L Potassium (3.6-5.0) mmol/L Chloride 93.6 L 94.6 L (98-107) mmol/L Carbon Dioxide 20 L (22-30) mmol/L Glucose 74 L 50 L (75-100) mg/dL POC Glucose (70-105) Total Creatine Kinase (55-170) units/L 07/03/17 07/04/17 07/04/17 Range/Units 23:34 01:31 06:02 RBC (3.65-5.03) M/mm3 Hgb (11.8-15.2) gm/dl Hct (35.5-45.6) % RDW (13.2-15.2) % [place] % (Auto) (0.0-7.3) % [place] # (0.0-0.8) K/mm3 Sodium 126 L D (137-145) mmol/L Potassium 3.3 L (3.6-5.0) mmol/L Chloride 90.0 L (98-107) mmol/L Carbon Dioxide (22-30) mmol/L Glucose 181 H (75-100) mg/dL POC Glucose 229 H (70-105) Total Creatine Kinase 176 H (55-170) units/L 07/04/17 07/04/17 Range/Units 06:32 11:50 RBC (3.65-5.03) M/mm3 Hgb (11.8-15.2) gm/dl Hct (35.5-45.6) % RDW (13.2-15.2) % [place] % (Auto) (0.0-7.3) % [place] # (0.0-0.8) K/mm3 Sodium (137-145) mmol/L Potassium (3.6-5.0) mmol/L Chloride (98-107) mmol/L Carbon Dioxide (22-30) mmol/L Glucose (75-100) mg/dL POC Glucose 178 H 218 H (70-105) Total Creatine Kinase (55-170) units/L
[2017-07-04] MEDS ORDERED: D50W (25GM) Syringe IV PRN (12:50)
[2017-07-04] MEDS ORDERED: VITAMIN B-1 100 MG, FOLVITE 1 MG, INFUVITE 10 ML in NACL 0.9% 1000 ML 1,000 ML IV ONE (12:53)
[2017-07-04] MEDS: KCL 10MEQ/100ML 10 MEQ/100 ML BAG IV SCH ×3 (14:17→16:11)
[2017-07-04] MEDS: PEPCID IV SCH ×2 (14:17→22:45)
[2017-07-04] MEDS: HumaLOG SUB-Q SCH ×2 (14:19→18:04)
[2017-07-04] MEDS: Renal Caps PO SCH (14:20)
[2017-07-04 14:50] LABS: Chol/HDL Ratio 6.29 %
[2017-07-04 16:09] LABS: Creatinine,Urine 313.4 mg/dL (0.1-20.0); Microalbumin/Creatinine Ratio 14.9 ug/mg
[2017-07-04] MEDS ORDERED: NACL 0.9% 1000 ML 1,000 ML IV SCH (21:00)
[2017-07-05] MEDS: HumaLOG SUB-Q SCH ×5 (00:57→23:13)
[2017-07-05] MEDS: NACL 0.9% 1000 ML 1,000 ML IV SCH ×3 (00:58→17:06)
[2017-07-05] MEDS: 1: FOLVITE 1 MG, INFUVITE 10 ML, VITAMIN B-1 100 MG in NACL 0.9% 1000 ML 988.8 ML 2: NA IV SCH (02:19)
[2017-07-05 07:16] LABS: Hematocrit 37.6 % (35.5-45.6); Hemoglobin 13.3 gm/dl (11.8-15.2); Mean Corpuscular HGB Conc 35 % (32-34); Mean Corpuscular Hemoglobin 30 pg (28-32); Mean Corpuscular Volume 85 fl (84-94); Platelet Count 151 K/mm3 (140-440); Red Blood Count 4.43 M/mm3 (3.65-5.03); Red Cell Distribution Width 12.9 % (13.2-15.2)
[2017-07-05 07:21] LABS: INR 0.92 (0.87-1.13)
[2017-07-05 07:32] LABS: Alanine Aminotransferase 12 units/L (7-56); Albumin 3.6 g/dL (3.9-5); BUN/Creatinine Ratio 6; Blood Urea Nitrogen 6 mg/dL (9-20); Calcium 8.4 mg/dL (8.4-10.2); Hemolysis Index 3
[2017-07-05 08:37] LABS: Basophils % (Manual) 0 % (0.0-1.8); Total Cells Counted 100
[2017-07-05 08:38] LABS: Platelet Estimate Consistent w Auto; RBC Morphology Normal
[2017-07-05] MEDS: HEPARIN SUB-Q SCH ×2 (11:13→22:44)
[2017-07-05] MEDS: Renal Caps PO SCH (11:14)
[2017-07-05] MEDS: PEPCID IV SCH ×2 (11:14→22:44)
[2017-07-05] MEDS ORDERED: PHOS-NAK PO ONE (14:00)
--- NOTE | 2017-07-05 19:11 | Discharge Summary ---
Providers - Providers Date of Admission: 07/04/17 00:42 Date of discharge: 07/06/17 Attending physician: CAROLA ELLSWORTH 07/04/17 12:52 Consult to Dietitian/Nutrition [CONS] Routine Physician Instructions: Reason For Exam: Reason for Consult: Diet education Primary care physician: MODELING MANAGER Hospitalization Condition: Stable Hospital course: This is a 31-year-old male with history of type 1 diabetes and alcohol abuse presented to the hospital feeling that he was going into DKA. In the ER his blood loss was 74 initially and repeat noted to be at 50. Patient was admitted to the hospital for further evaluation and management. He was placed on IV fluid hydration and started on consistent carbohydrate diet and placed on only sliding scale of insulin for blood glucose control. The patient stated that he drinks moderate alcohol on a regular basis and last drink was within the last 24 hours before admission. He was monitored for alcohol withdrawal. He was tolerated diet well. Blood glucose was initially managed with sliding scale and long-acting insulin added. His electrolytes were monitored and repleted accordingly. His blood glucose was stabilized, he was clinically stable for discharge. Discharge Diagnosis: -Diabetes mellitus type 1 with hypoglycemic event - Alcohol abuse - Hyponatremia - Hypokalemia - Brennon, POA. likely from vasomotor nephropathy, resolved - Medication noncompliance - DVT prophylaxis with heparin GI with Pepcid Disposition: DC-01 TO HOME OR SELFCARE Time spent for discharge: 32 minutes Core Measure Documentation - Palliative Care Palliative Care/ Comfort Measures: Not Applicable - Core Measures Any of the following diagnoses?: none Exam - Constitutional Vitals: Temp Pulse Resp BP Pulse Ox 984 F H 68 20 120/80 97 07/05/17 15:58 07/05/17 15:58 07/05/17 15:58 07/05/17 15:58 07/05/17 15:58 General appearance: Present: no acute distress, well-nourished - EENT Eyes: Present: PERRL ENT: hearing intact, clear oral mucosa - Neck Neck: Present: supple, normal ROM - Respiratory Respiratory effort: normal Respiratory: bilateral: CTA - Cardiovascular Heart Sounds: Present: S1 & S2. Absent: rub, click - Extremities Extremities: pulses symmetrical, No edema Peripheral Pulses: within normal limits - Abdominal General gastrointestinal: Present: soft, non-tender, non-distended, normal bowel sounds - Integumentary Integumentary: Present: clear, warm, dry - Musculoskeletal Musculoskeletal: gait normal, strength equal bilaterally - Psychiatric Psychiatric: appropriate mood/affect, intact judgment & insight - Neurologic Neurologic: CNII-XII intact, moves all extremities Plan Activity: advance as tolerated Weight Bearing Status: Weight Bear as Tolerated Diet: diabetic Follow up with: PRIMARY CARE,MD [Primary Care Provider] - 3-5 Days Prescriptions: Insulin Glargine [Lantus VIAL] 20 unit SUB-Q QHS 30 Days ml
[2017-07-05] MEDS ORDERED: VITAMIN B-1 100 MG, FOLVITE 1 MG, INFUVITE 10 ML in NACL 0.9% 1000 ML 1,000 ML IV SCH (22:00)
[2017-07-06] MEDS: HumaLOG SUB-Q SCH (06:47)
[2017-07-06] MEDS: NACL 0.9% 1000 ML 1,000 ML IV SCH (06:48)
[2017-07-06 07:02] LABS: Hematocrit 38.7 % (35.5-45.6); Hemoglobin 13.7 gm/dl (11.8-15.2); Mean Corpuscular HGB Conc 35 % (32-34); Mean Corpuscular Hemoglobin 30 pg (28-32); Mean Corpuscular Volume 84 fl (84-94); Platelet Count 165 K/mm3 (140-440); Red Blood Count 4.61 M/mm3 (3.65-5.03); Red Cell Distribution Width 12.7 % (13.2-15.2)
[2017-07-06 07:29] LABS: Alanine Aminotransferase 13 units/L (7-56); Albumin 3.5 g/dL (3.9-5); BUN/Creatinine Ratio 6; Blood Urea Nitrogen 5 mg/dL (9-20); Calcium 8.3 mg/dL (8.4-10.2); Hemolysis Index 4
[2017-07-06] MEDS ORDERED: K-DUR PO ONE (08:00)
[2017-07-06] MEDS: HEPARIN SUB-Q SCH (09:35)
[2017-07-06] MEDS ORDERED: FOLVITE PO SCH (10:00)
[2017-07-06] MEDS ORDERED: VITAMIN B-1 PO SCH (10:00)
[2017-07-06] MEDS ORDERED: THERAGRAN Tab PO SCH (10:00)
[2017-07-06] MEDS ORDERED: PEPCID PO SCH (10:00)
--- NOTE | 2017-07-06 10:09 | Progress Note ---
Assessment and Plan -Diabetes mellitus type 1 Start on NPH 10 units twice a day along with sliding scale insulin Consistent carbohydrate diet - Alcohol abuse DT precaution with CIWA protocol using ativan Counseled on alcohol as a source. - Hyponatremia IV hydration with normal saline - Hypokalemia Continue to replete as needed, normal magnesium level Brennon, POA. likely from vasomotor nephropathy, resolved - Medication noncompliance Counseled for compliance. Patient has been out of his insulin for one month. - DVT prophylaxis with heparin GI with [facility] Physical exam: GENERAL: well-developed and well-nourished male lying on bed appeared to be in no discomfort. HEENT: Normocephalic. Atraumatic. No conjunctival congestion or icterus. Patient has moist mucous membranes. NECK: Supple. Trachea midline. CHEST/LUNGS: Clear to auscultated bilaterally, breathing nonlabored. No wheezes crackles or rhonchi. HEART/CARDIOVASCULAR: Regular in rate and rhythm. S1 and S2 positive. ABDOMEN: Abdomen is soft, nontender. Patient has normal bowel sounds. SKIN: There is no rash. Warm and dry. NEURO: No focal motor deficit. Follows command. MUSCULOSKELETAL: No joint effusion or tenderness. EXTRIMITY: No edema, no cyanosis or clubbing. PSYCH: Cooperative. Subjective Date of service: 07/05/17 Principal diagnosis: DKA, T1DM Interval history: Patient seen and examined. Medical records and medication list reviewed. No acute event overnight noted by the RN. Patient denies any chest pain or difficulty breathing. Patient is tolerating diet. Discussed plan of care at bedside with patient. Objective - Constitutional Vitals: Vital Signs - 12hr 07/05/17 23:28 Pulse Rate 58 L Blood Pressure 131/85 O2 Sat by Pulse 99 Oximetry - Labs CBC & Chem 7: 07/06/17 06:16 07/06/17 06:16 Labs: Abnormal lab results 07/05/17 07/05/17 07/05/17 Range/Units 12:39 16:51 21:21 WBC (4.5-11.0) K/mm3 MCHC (32-34) % RDW (13.2-15.2) % Potassium (3.6-5.0) mmol/L BUN (9-20) mg/dL Glucose (75-100) mg/dL POC Glucose 277 H 229 H 260 H (70-105) Calcium (8.4-10.2) mg/dL Total Protein (6.3-8.2) g/dL Albumin (3.9-5) g/dL 07/06/17 07/06/17 07/06/17 Range/Units 06:16 06:16 06:41 WBC 3.7 L (4.5-11.0) K/mm3 MCHC 35 H (32-34) % RDW 12.7 L (13.2-15.2) % Potassium 3.5 L (3.6-5.0) mmol/L BUN 5 L (9-20) mg/dL Glucose 244 H (75-100) mg/dL POC Glucose 254 H (70-105) Calcium 8.3 L (8.4-10.2) mg/dL Total Protein 6.1 L (6.3-8.2) g/dL Albumin 3.5 L (3.9-5) g/dL
[2017-07-06 10:33] LABS: Basophils % (Manual) 0 % (0.0-1.8); Eosinophils % (Manual) 0 % (0.0-4.3); RBC Morphology Normal; Total Cells Counted 100
[2017-07-06 10:34] LABS: Platelet Estimate Cons
[2017-07-06 11:34] VITALS: BP 125/85
--- NOTE | 2017-07-08 08:21 | History and Physical Report ---
CHIEF COMPLAINT: Feeling of a malaise. HISTORY OF PRESENT ILLNESS: The patient is a 31-year-old male with history of type 1 diabetes mellitus who states he has this feeling that he was going into DKA like before and that he is having funny feelings in his mouth and admitted to be having nausea and vomiting with abdominal pain, but denies history of diarrhea and palpitation. He has also no history of fever or chills. The patient is known to be noncompliant with medication and treatment and was evaluated in the Emergency Room where he was found to have glucose of 74 initially, with repeat going down to 50. We have also initial finding of CO2 of 24 and elevated anion gap. The patient admitted to drinking alcohol regularly red alcohol within the last 24 hours of presentation. Because of the patient's history of DKA in the past and noncompliance with the lab findings, the patient was recommended for admission. PAST MEDICAL HISTORY: Pertinent for type 1 diabetes mellitus with DKA. PAST SURGICAL HISTORY: Unremarkable. FAMILY HISTORY: Noncontributory. SOCIAL HISTORY: The patient drinks alcohol regularly, does not smoke cigarette, does not use illicit drugs. MEDICATIONS: The patient is on Humalog insulin subQ twice daily, also the patient is on 70/30 insulin 10 units subQ twice daily. ALLERGIES: There are no known drug allergies. REVIEW OF SYSTEMS: CONSTITUTIONAL: There is no fever, no chills, no diaphoresis. HEENT: There is no headache or sore throat. CARDIOVASCULAR: There is no chest pain or orthopnea. RESPIRATORY: There is no shortness of breath or cough. GASTROINTESTINAL: Nausea and vomiting noted. Abdominal discomfort noted. No diarrhea. No constipation. NEUROLOGICAL: There is no numbness, no dizziness, no altered mental status. MUSCULOSKELETAL: There is no joint pain or joint swelling. DERMATOLOGICAL: There is no skin rash or itching. GENITOURINARY: There is no dysuria, hematuria or flank pain. Rest of system review is normal. PHYSICAL EXAMINATION: GENERAL: At the time of exam, the patient was found to be alert and oriented x 3, not in acute distress. VITAL SIGNS: Shows temperature of 98.9 degrees Fahrenheit, pulse rate of 137 with respirations 18, blood pressure 145/89, O2 sat of 96% on room air. HEENT: Showed pupils to be equal, round, reactive to light and accommodative. Extraocular muscles are intact. NECK: Supple with no JVD or carotid bruit. CARDIOVASCULAR: Showed normal first and second heart sounds with no gallops or murmurs. RESPIRATORY: Showed good air entry on both sides of the lung with no abnormal breath sounds. GASTROINTESTINAL: Showed abdomen to be full, soft, nontender with no organomegaly or rigidity. NEUROLOGIC: Shows no focal deficits. MUSCULOSKELETAL: Showed no joint swelling or tenderness. DERMATOLOGICAL: Showed no skin rash. GENITOURINARY: Showing costovertebral angle tenderness. PERTINENT LABORATORY DATA AND IMAGING STUDIES: The patient has done with normal white count, high hemoglobin of 16.8 and high hematocrit of 48.8, normal MCV. CBC differential shows elevated monocyte count of 10.3% and the patient's chemistry shows low sodium of 135 with normal potassium level, low chloride of 93.6, with normal CO2 of 24. Renal function was unremarkable. The patient's anion gap was 18. Alcohol level was less than 0.01. IMAGING STUDIES: The patient had a chest x-ray done that shows no active cardiopulmonary lesions. DIAGNOSES: 1. Metabolic acidosis: 2. Diabetes mellitus. PLAN: The patient will be admitted to medical floor, will be on IV normal saline at 160 mL an hour, will be on IV Zofran 4 mg every 8 hours for nausea and vomiting. The patient will be on banana bag made up of thiamine 100 mg, folic acid 1 mg, multivitamin 1 amp and 2 g of magnesium sulfate mixed with 1 liter of normal saline and given once a day. The patient will be on Accu-Chek a.c. and at bedtime, follow the low-dose sliding scale. The patient's home medications have been reconciled and will be started accordingly. JOB# [id number] OCN/NTS
== END 2017-07-06 11:30 | disposition home or self-care (01) | DRG 638 ==
LOC: ED 18:38 → 3A 07-04 00:42
PROVIDERS: ADMIT Internal Medicine; ATTEND Internal Medicine
DX: E10.649 Type 1 diabetes mellitus with hypoglycemia without coma (principal); E87.1 Hypo-osmolality and hyponatremia; E87.2 Acidosis; N17.0 Acute kidney failure with tubular necrosis; F10.10 Alcohol abuse, uncomplicated; E87.6 Hypokalemia; Z91.14 Patient's other noncompliance with medication regimen
CPT/HCPCS: 36415; 71045; 80048; 80053; 80061; 80307; 80320; 81001; 82010; 82043; 82550; 82805; 82962; 83036; 83735; 84100; 84484; 85007; 85025; 85610; 93005; 93010; 96361; 96365; 96375; G0480; J1644; J1815; J2405; J3411; J3480; J7030; J7042

== ENCOUNTER 2018-02-08 10:57 | Inpatient (IN) | payer BC, OTHER ==
[2018-02-08] MEDS ORDERED: ZOFRAN IV ONE (11:37)
[2018-02-08] MEDS ORDERED: NACL 0.9% 1000 ML 1,000 ML IV ONE ×3 (11:37→12:42)
[2018-02-08] MEDS ORDERED: PEPCID IV ONE (11:37)
--- NOTE | 2018-02-08 11:44 | Emergency Department Report ---
<LAURITA LAWS - Last Filed: 02/08/18 11:42> ED General Adult HPI - General Chief complaint: Nausea/Vomiting/Diarrhea Stated complaint: VOMITING/DIABETIC Time Seen by Provider: 02/08/18 11:24 Source: patient Mode of arrival: Ambulatory Limitations: No Limitations - History of Present Illness Initial comments: Patient is a 32-year-old male who is insulin-dependent diabetic who has had nausea vomiting for the past 2 days. Patient did have unable to keep anything down. Patient drank for New Year's Caron and has felt ill since. Patient states he feels weak and fatigued. Patient denies any abdominal pain cough cold congestion. Patient has been in DKA in the past. - Related Data Previous Rx's Medication Instructions Recorded Last Taken Type Folic Acid [Folvite] 1 mg PO DAILY #30 tablet 07/06/17 Unknown Rx Insulin NPH/Regular [NovoLIN 70/30] 15 unit SUB-Q BIDDIAB 30 Days 07/06/17 Unknown Rx units Thiamine [Vitamin B-1] 100 mg PO QDAY #30 tablet 07/06/17 Unknown Rx Allergies Allergy/AdvReac Type Severity Reaction Status Date / Time No Known Allergies Allergy Verified 09/01/16 21:41 ED Review of Systems Comment: All other systems reviewed and negative ED Past Medical Hx - Past Medical History Hx Congestive Heart Failure: No Hx Diabetes: Yes (DM1) Hx Asthma: No Hx COPD: No - Surgical History Past Surgical History?: No - Social History Smoking Status: Never Smoker Substance Use Type: Alcohol - Medications Home Medications: Home Medications Medication Instructions Recorded Confirmed Last Taken Type Folic Acid [Folvite] 1 mg PO DAILY #30 tablet 07/06/17 Unknown Rx Insulin NPH/Regular [NovoLIN 70/30] 15 unit SUB-Q BIDDIAB 30 Days 07/06/17 Unknown Rx units Thiamine [Vitamin B-1] 100 mg PO QDAY #30 tablet 07/06/17 Unknown Rx ED Physical Exam - General Limitations: No Limitations General appearance: alert, in no apparent distress - Head Head exam: Present: atraumatic, normocephalic - Eye Eye exam: Present: normal appearance - ENT ENT exam: Present: mucous membranes dry - Neck Neck exam: Present: normal inspection - Respiratory Respiratory exam: Present: normal lung sounds bilaterally. Absent: respiratory distress, wheezes, rales, rhonchi - Cardiovascular Cardiovascular Exam: Present: normal rhythm, tachycardia, normal heart sounds. Absent: systolic murmur, diastolic murmur, rubs, gallop - GI/Abdominal GI/Abdominal exam: Present: soft, normal bowel sounds. Absent: distended, t enderness, guarding, rebound, rigid - Rectal Rectal exam: Present: deferred - Extremities Exam Extremities exam: Present: normal inspection - Back Exam Back exam: Present: normal inspection - Neurological Exam Neurological exam: Present: alert, oriented X3 - Psychiatric Psychiatric exam: Present: normal affect, normal mood - Skin Skin exam: Present: warm, dry, intact, normal color. Absent: rash ED Disposition Clinical Impression: DKA (diabetic ketoacidoses) Qualifiers: Diabetes mellitus type: other specified (including NANCY) Diabetes mellitus complication detail: without coma Qualified Code(s): E13.10 - Other specified diabetes mellitus with ketoacidosis without coma Disposition: OP ADMIT IP TO THIS HOSP Condition: Stable Instructions: Diabetic Ketoacidosis (ED) Referrals: PRIMARY CARE, [Primary Care Provider] - 3-5 Days <RIC JO - Last Filed: 02/08/18 13:58> ED Review of Systems ROS: Stated complaint: VOMITING/DIABETIC Other details as noted in HPI ED Course Vital Signs 02/08/18 02/08/18 11:05 12:44 Temperature 97.9 F Pulse Rate 123 H Respiratory 18 15 Rate Blood Pressure 156/99 O2 Sat by Pulse 99 Oximetry - Reevaluation(s) Reevaluation #1: 02/08/18 13:21 Patient is speaking in full sentences with no signs of distress noted. - Consultations Consultation #1: 02/08/18 13:21 Patient was consulted with Dr. Lissett V (hospitalist) for admission. Consultation #2: 02/08/18 13:56 Patient was accepted with Dr. Lissett V. ED Medical Decision Making - Lab Data Result diagrams: 02/08/18 11:45 02/08/18 11:45 - Medical Decision Making This is a 32-year-old male that was signed out to me by Dr. Laws for pending results. Lab results obtained and does indicate the patient is in DKA. Patient is admitted with Dr. Galeana (hospitalist). Heparin drip initiated in the ER. At time of admission, the patient does not seem toxic or ill in appearance. No acute signs of distress noted. Patient agrees to admission treatment plan of care. No further questions noted by the patient. Critical care attestation.: If time is entered above; I have spent that time in minutes in the direct care of this critically ill patient, excluding procedure time. ED Disposition Is pt being admited?: Yes
[2018-02-08 12:04] LABS: Basophils # (Auto) 0.2 K/mm3 (0.0-0.1); Basophils % (Auto) 1.1 % (0.0-1.8); Hematocrit 47.1 % (35.5-45.6); Hemoglobin 15.9 gm/dl (11.8-15.2); Lymphocytes # (Auto) 1.4 K/mm3 (1.2-5.4); Lymphocytes % (Auto) 10.5 % (13.4-35.0); Mean Corpuscular HGB Conc 34 % (32-34); Mean Corpuscular Volume 90 fl (84-94); Monocytes # (Auto) 0.8 K/mm3 (0.0-0.8); Monocytes % (Auto) 5.8 % (0.0-7.3); Platelet Count 243 K/mm3 (140-440); Red Blood Count 5.25 M/mm3 (3.65-5.03); Red Cell Distribution Width 13.4 % (13.2-15.2)
[2018-02-08 12:29] LABS: Alanine Aminotransferase 16 units/L (7-56); Albumin 5.4 g/dL (3.9-5); BUN/Creatinine Ratio 11; Blood Urea Nitrogen 17 mg/dL (9-20); Calcium 10.3 mg/dL (8.4-10.2); Hemolysis Index 51
[2018-02-08] MEDS ORDERED: D50W (25GM) Syringe IV PRN ×2 (12:42→15:02)
[2018-02-08 13:18] LABS: Bilirubin,Urine NEG (Negative); Blood,Urine SM (Negative); Color,Urine Straw (Yellow); Mucus,Urine FEW /HPF; Urobilinogen,Urine < 2.0 mg/dL (<2.0)
[2018-02-08] MEDS ORDERED: HumuLIN R 100 UNITS in NACL 0.9% 99 ML IV SCH ×2 (14:00→16:00)
[2018-02-08] MEDS ORDERED: D5W/0.45% NACL/KCL 20 MEQ 20 MEQ/1,000 ML BAG IV SCH (14:00)
[2018-02-08] MEDS ORDERED: TYLENOL PO PRN (14:57)
[2018-02-08] MEDS ORDERED: ZOFRAN IV PRN (14:57)
[2018-02-08] MEDS ORDERED: DILAUDID IV PRN (14:57)
[2018-02-08] MEDS ORDERED: SODIUM CHLORIDE FLUSH SYRINGE 10 ML IV PRN (14:57)
[2018-02-08] MEDS ORDERED: NACL 0.9% 1000 ML 1,000 ML IV SCH (15:00)
[2018-02-08 15:35] LABS: BUN/Creatinine Ratio 11; Blood Urea Nitrogen 16 mg/dL (9-20); Calcium 9.4 mg/dL (8.4-10.2); Hemolysis Index 7
[2018-02-08] MEDS ORDERED: D5W/0.45% NACL/KCL 20 MEQ 20 MEQ/1,000 ML BAG IV ONE (16:55)
[2018-02-08 17:36] LABS: BUN/Creatinine Ratio 11; Blood Urea Nitrogen 14 mg/dL (9-20); Calcium 8.6 mg/dL (8.4-10.2); Hemolysis Index 20
[2018-02-08 19:10] LABS: BUN/Creatinine Ratio 9; Blood Urea Nitrogen 13 mg/dL (9-20); Calcium 8.4 mg/dL (8.4-10.2); Hemolysis Index 32
[2018-02-08 19:29] LABS: BUN/Creatinine Ratio 10; Blood Urea Nitrogen 13 mg/dL (9-20); Calcium 8.6 mg/dL (8.4-10.2); Hemolysis Index 11
[2018-02-08] MEDS: SODIUM CHLORIDE FLUSH SYRINGE 10 ML IV SCH (21:53)
[2018-02-08 22:02] LABS: BUN/Creatinine Ratio 9; Blood Urea Nitrogen 11 mg/dL (9-20); Calcium 8.4 mg/dL (8.4-10.2); Hemolysis Index 19
[2018-02-08 22:59] LABS: BUN/Creatinine Ratio 8; Blood Urea Nitrogen 11 mg/dL (9-20); Calcium 8.6 mg/dL (8.4-10.2); Hemolysis Index 9
[2018-02-09] MEDS: HumaLOG SUB-Q SCH ×3 (00:16→08:05)
[2018-02-09] MEDS: D5/0.45NS 1,000 ML IV SCH ×2 (00:53→08:36)
--- NOTE | 2018-02-09 06:26 | Event Note ---
Date: 02/08/18 Please see dictated H/p in reports DKA versus Alcoholic Ketoacidosis
--- NOTE | 2018-02-09 07:02 | History and Physical Report ---
CHIEF COMPLAINT: Persistent vomiting for 2 days. HISTORY OF PRESENT ILLNESS: A 32-year-old -Turk[place] male with a history of juvenile diabetes type 1, comes in for nausea and vomiting for 2 days. The patient was partying on the and fell ill since then. The patient had too many alcoholic drinks. Denies any abdominal pain. Denies noncompliance with insulin. The patient takes insulin 70/30 15 units in the morning and 15 units in the evening. Does not have a PCP, buys his own insulin from [employer]. ____ for $25. PAST MEDICAL HISTORY: Significant for insulin-dependent diabetes. No other medical problems. PAST SURGICAL HISTORY: None. SOCIAL HISTORY: Does not smoke, but alcohol on a regular basis. FAMILY HISTORY: Noncontributory. REVIEW OF SYSTEMS: Significant for nausea and persistent vomiting. Feeling dehydrated. Otherwise, review of systems is negative. PHYSICAL EXAMINATION: GENERAL: Young male, cooperative during examination. VITAL SIGNS: Blood pressure 125/77, temperature 98.3, pulse 94, respirations 15, sats are 98%. HEENT: Unremarkable. Pupils equal and reactive. NECK: Supple, no lymphadenopathy, no thyromegaly. LUNGS: Clear to auscultation and percussion. Good air entry. CARDIOVASCULAR: S1, S2 heard. No gallop, no murmur, no rub. Apical impulse in left fifth intercostal space and midclavicular line. ABDOMEN: Soft and benign. No hepatosplenomegaly. No guarding, no rigidity. Hernial orifices are normal. EXTREMITIES: Good pedal pulses. No pedal edema. CENTRAL NERVOUS SYSTEM: Alert and oriented x 4, nonfocal exam. SKIN: Normal. LABORATORY DATA: White count is 13,700, H and H are 15.9 and 47.9. Platelet count is normal. Sodium is 134, slightly low; potassium is 5.2, BUN and creatinine 17 and 1.6, bicarbonate is 14. Calcium is 10.3, AST and ALT are normal. Total protein is 9.4, albumin is 5.4. Urine shows glucose of more than 500, but 80 of ketones. Acetone not done. ASSESSMENT AND PLAN: 1. Diabetic ketoacidosis protocol initiated. The patient on insulin drip and IV fluids and IV Zofran. Differential diagnosis of alcoholic ketoacidosis. Boiling Tub Operator consult requested. Adjust the dosage as necessary. 2. Deep venous thrombosis prophylaxis with Lovenox. JOB# [id number] KATY/ELIEL
[2018-02-09 07:41] LABS: BUN/Creatinine Ratio 7; Blood Urea Nitrogen 7 mg/dL (9-20); Calcium 8.4 mg/dL (8.4-10.2); Hemolysis Index 8
[2018-02-09] MEDS: SODIUM CHLORIDE FLUSH SYRINGE 10 ML IV SCH (09:14)
[2018-02-09 10:30] VITALS: BP 108/67
--- NOTE | 2018-02-09 11:17 | Discharge Summary ---
Providers - Providers Date of Admission: 02/08/18 14:57 Attending physician: RADHA BALLARD MD 02/08/18 14:57 Consult to Physician [CONS] Routine Comment: Dr. Kong notified @ 15:43- [facility] Consulting Provider: JAVIER KONG Physician Instructions: Reason For Exam: DKA 02/08/18 15:03 Consult to Dietitian/Nutrition [CONS] Routine Physician Instructions: Reason For Exam: DKA Reason for Consult: Nutrition Recommendations Reason for Consult: Diet education Primary care physician: MEDICAL ACCOUNTANT Hospitalization Reason for admission: alcoholic ketosis, hyperglycemia Condition: Stable Hospital course: patient was admitted for alcoholic ketoacidosis and uncontrolled DM. Patient was resuscitated with IV fluids and patient showed markedly improved. Patient was discharged home with the advice about cessation of alcohol and medication adherence. Patient A1c was high and advised to get log of his blood sugar and discuss with his PCP. Disposition: - TO HOME OR SELFCARE Time spent for discharge: 32 minutes - Discharge Diagnoses (1) DKA (diabetic ketoacidoses) Status: Acute Qualifiers: Diabetes mellitus type: other specified (including NANCY) Diabetes mellitus complication detail: without coma Qualified Code(s): E13.10 - Other specified diabetes mellitus with ketoacidosis without coma (2) Alcoholic ketoacidosis Status: Acute (3) Metabolic acidosis Status: Acute (4) Noncompliance with medication regimen Status: Acute Core Measure Documentation - Palliative Care Palliative Care/ Comfort Measures: Not Applicable - Core Measures Any of the following diagnoses?: none Exam - Physical Exam Narrative exam: Not in cardiopulmonary distress. The patient appeared well nourished and normally developed. Vital signs as documented. Head exam is unremarkable. No scleral icterus . Neck is without jugular venous distension, thyromegaly, or carotid bruits. Lungs are clear to auscultation. Cardiac exam reveals regular rate and Rhythm. First and second heart sounds normal. No murmurs, rubs or gallops. Abdominal exam reveals normal bowel sounds, no masses, no organomegaly and no aortic enlargement. Extremities are nonedematous and both femoral and pedal pulses are normal. CCO: Alert and oriented 3. No focal weakness. - Constitutional Vitals: Temp Pulse Resp BP Pulse Ox 98.2 F 92 H 16 108/67 97 02/09/18 08:00 02/09/18 10:21 02/09/18 10:21 02/09/18 10:21 02/09/18 10:21 Plan Activity: no restrictions Weight Bearing Status: Full Weight Bearing Diet: diabetic Additional Instructions: Follow up at [facility] in 1-2 weeks Follow up with: PRIMARY CARE, [Primary Care Provider] - 3-5 Days MARYAN FULLER MD [Staff Physician] - 7 Days Forms: Work/School Excuse Out Patient, Work/School Release Form
[2018-02-09] MEDS ORDERED: K-DUR PO ONE (11:45)
== END 2018-02-09 12:45 | disposition home or self-care (01) | DRG 639 ==
LOC: ED 10:57 → CC1 14:57 → IMCU 18:59
PROVIDERS: ADMIT Internal Medicine; ATTEND Internal Medicine
DX: E10.10 Type 1 diabetes mellitus with ketoacidosis without coma (principal); Z71.41 Alcohol abuse counseling and surveillance of alcoholic; Z91.14 Patient's other noncompliance with medication regimen; Z79.4 Long term (current) use of insulin; Z79.899 Other long term (current) drug therapy; Z71.89 Other specified counseling
CPT/HCPCS: 36415; 80048; 80053; 81001; 82962; 83036; 83690; 83735; 84100; 85025; 96365; 96375; G0378; J1815; J2405; J7030

== ENCOUNTER 2018-05-22 09:24 | Emergency (ER) | payer SELFPAY ==
[2018-05-22 09:56] LABS: Basophils % (Auto) 0.6 % (0.0-1.8); Eosinophils % (Auto) 0.6 % (0.0-4.3); Hematocrit 48.4 % (35.5-45.6); Hemoglobin 16.8 gm/dl (11.8-15.2); Lymphocytes # (Auto) 1.6 K/mm3 (1.2-5.4); Lymphocytes % (Auto) 26.6 % (13.4-35.0); Mean Corpuscular HGB Conc 35 % (32-34); Mean Corpuscular Volume 88 fl (84-94); Monocytes # (Auto) 0.7 K/mm3 (0.0-0.8); Monocytes % (Auto) 10.8 % (0.0-7.3); Platelet Count 211 K/mm3 (140-440); Red Blood Count 5.47 M/mm3 (3.65-5.03); Red Cell Distribution Width 13.2 % (13.2-15.2)
[2018-05-22 10:12] LABS: BUN/Creatinine Ratio 8; Blood Urea Nitrogen 11 mg/dL (9-20); Calcium 9.9 mg/dL (8.4-10.2); Hemolysis Index 18
--- NOTE | 2018-05-22 11:04 | Emergency Department Report ---
ED ENT HPI - General Chief complaint: Dental/Oral Stated complaint: MOUTH/NECK/HEAD PAIN Time Seen by Provider: 05/22/18 10:47 Source: patient Mode of arrival: Ambulatory Limitations: No Limitations - History of Present Illness Initial comments: This is a 32-year-old male who presents to ED complaining of mild mouth ulcers for the past 4 days. Patient states yesterday the ulcers began to hurt causing some pain. Patient does state that he is a diabetic and takes this medication daily. Patient states that he has not taken his insulin today. - Related Data Previous Rx's Medication Instructions Recorded Last Taken Type Folic Acid [Folvite] 1 mg PO DAILY #30 tablet 07/06/17 Unknown Rx Insulin NPH/Regular [NovoLIN 70/30] 15 unit SUB-Q BIDDIAB 30 Days 07/06/17 Unknown Rx units Thiamine [Vitamin B-1] 100 mg PO QDAY #30 tablet 07/06/17 Unknown Rx Amoxicillin [Amoxicillin TAB] 875 mg PO BID #20 tablet 05/22/18 Unknown Rx Chlorhexidine Mouthwash [Peridex] 15 ml MM BID 10 Days #1 bottle 05/22/18 Unknown Rx Ibuprofen [Motrin 800 MG tab] 800 mg PO TID #30 tablet 05/22/18 Unknown Rx Allergies Allergy/AdvReac Type Severity Reaction Status Date / Time No Known Allergies Allergy Verified 09/01/16 21:41 ED Dental HPI - General Chief complaint: Dental/Oral Stated complaint: MOUTH/NECK/HEAD PAIN Time Seen by Provider: 05/22/18 10:47 Source: patient Mode of arrival: Ambulatory Limitations: No Limitations - Related Data Previous Rx's Medication Instructions Recorded Last Taken Type Folic Acid [Folvite] 1 mg PO DAILY #30 tablet 07/06/17 Unknown Rx Insulin NPH/Regular [NovoLIN 70/30] 15 unit SUB-Q BIDDIAB 30 Days 07/06/17 Unknown Rx units Thiamine [Vitamin B-1] 100 mg PO QDAY #30 tablet 07/06/17 Unknown Rx Amoxicillin [Amoxicillin TAB] 875 mg PO BID #20 tablet 05/22/18 Unknown Rx Chlorhexidine Mouthwash [Peridex] 15 ml MM BID 10 Days #1 bottle 05/22/18 Unknown Rx Ibuprofen [Motrin 800 MG tab] 800 mg PO TID #30 tablet 05/22/18 Unknown Rx Allergies Allergy/AdvReac Type Severity Reaction Status Date / Time No Known Allergies Allergy Verified 09/01/16 21:41 ED Review of Systems ROS: Stated complaint: MOUTH/NECK/HEAD PAIN Other details as noted in HPI Comment: All other systems reviewed and negative ED Past Medical Hx - Past Medical History Previous Medical History?: Yes Hx Congestive Heart Failure: No Hx Diabetes: Yes (DM type 1) Hx Asthma: No Hx COPD: No - Social History Smoking Status: Never Smoker Substance Use Type: Alcohol - Medications Home Medications: Home Medications Medication Instructions Recorded Confirmed Last Taken Type Folic Acid [Folvite] 1 mg PO DAILY #30 tablet 07/06/17 02/08/18 Unknown Rx Insulin NPH/Regular [NovoLIN 70/30] 15 unit SUB-Q BIDDIAB 30 Days 07/06/1703/28 Unknown Rx units Thiamine [Vitamin B-1] 100 mg PO QDAY #30 tablet 07/06/17 02/08/18 Unknown Rx Amoxicillin [Amoxicillin TAB] 875 mg PO BID #20 tablet 05/22/18 Unknown Rx Chlorhexidine Mouthwash [Peridex] 15 ml MM BID 10 Days #1 bottle 05/22/18 Unknown Rx Ibuprofen [Motrin 800 MG tab] 800 mg PO TID #30 tablet 05/22/18 Unknown Rx ED Physical Exam - General Limitations: No Limitations General appearance: alert, in no apparent distress - Head Head exam: Present: atraumatic, normocephalic - Eye Eye exam: Present: normal appearance - ENT ENT exam: Present: mucous membranes moist - Expanded ENT Exam Expanded Mouth exam: Present: normal external inspection, tongue normal, other Teeth exam: Present: dental caries. Absent: gingival enlargement Throat exam: Positive: normal inspection. Negative: tonsillar erythema, tonsillar exudate - Neck Neck exam: Present: normal inspection - Respiratory Respiratory exam: Present: normal lung sounds bilaterally. Absent: respiratory distress - Cardiovascular Cardiovascular Exam: Present: regular rate, normal rhythm. Absent: systolic murmur, diastolic murmur, rubs, gallop - GI/Abdominal GI/Abdominal exam: Present: soft, normal bowel sounds. Absent: distended - Rectal Rectal exam: Present: deferred - Extremities Exam Extremities exam: Present: normal inspection - Back Exam Back exam: Present: normal inspection - Neurological Exam Neurological exam: Present: alert, oriented X3 - Psychiatric Psychiatric exam: Present: normal affect, normal mood - Skin Skin exam: Present: warm, dry, intact, normal color. Absent: rash ED Course Vital Signs 05/22/18 09:33 Temperature 98.3 F Pulse Rate 98 H Respiratory 16 Rate Blood Pressure 139/95 O2 Sat by Pulse 98 Oximetry ED Medical Decision Making - Lab Data Result diagrams: 05/22/18 09:39 05/22/18 09:39 - Medical Decision Making 32-year-old male presents with a dental caries/mouth ulcers. Discussed with patient and to follow-up with dentist Dentist referral given. Assessment normal patient is in acute distress Discussed the patient go home and take his insulin. Patient is not complaining of any of the symptoms. Critical care attestation.: If time is entered above; I have spent that time in minutes in the direct care of this critically ill patient, excluding procedure time. ED Disposition Clinical Impression: Oral ulcer, Dental caries Disposition: - TO HOME OR SELFCARE Is pt being admited?: No Does the pt Need Aspirin: No Condition: Stable Instructions: Dental Caries (ED), Trench Mouth (ED) Additional Instructions: Make sure to follow up with the primary care physician as discussed. Take all your medications as you've been prescribed. If you have any worsening symptoms or develop new symptoms please return to ED immediately. Prescriptions: Amoxicillin [Amoxicillin TAB] 875 mg PO BID #20 tablet Ibuprofen [Motrin 800 MG tab] 800 mg PO TID #30 tablet Chlorhexidine Mouthwash [Peridex] 15 ml MM BID 10 Days #1 bottle Referrals: CHUY PACHECO MD [Primary Care Provider] - 3-5 Days [facility] [Outside] - 3-5 Days [facility] [Outside] - 3-5 Days [facility] [Outside] - 3-5 Days Forms: Work/School Release Form(ED) Time of Disposition: 11:37
[2018-05-22] MEDS ORDERED: IBUPROFEN PO ONE (11:23)
[2018-05-23 18:41] VITALS: BP 139/95
== END 2018-05-22 11:52 | disposition home or self-care (01) ==
LOC: ED 09:24
DX: K02.9 Dental caries, unspecified (principal); K12.1 Other forms of stomatitis; E10.9 Type 1 diabetes mellitus without complications; Z79.899 Other long term (current) drug therapy
CPT/HCPCS: 36415; 80048; 82962; 85025; 99283